=== PATIENT | male | born 1995 | race Caucasian/White ===

== ENCOUNTER 2016-07-08 03:00 | Emergency (ER) | payer OTHER ==
[~2016-07-08] VITALS: Ht 175.3 cm; Wt 90.7 kg
[2016-07-08 03:12] VITALS: BP 140/74
--- NOTE | 2016-07-08 03:17 | NUR ---
AMBULATED TO ER BED 2
--- NOTE | 2016-07-08 03:29 | NUR ---
PATIENT PRESENTS TO ED WITH SINUS PRESSURE X4 DAYS . PT STATES USING SALINE SPRAY WITH NO RELIEF . STATES N/V, DENIES DIARRHEA; SKIN IS PINK/WARM/DRY; AAOX4 WITH EVEN AND STEADY GAIT; LUNGS CLEAR BL; HR EVEN AND REGULAR; PT DENIES ANY FEVER, CP, SOB, OR COUGH AT THIS TIME; PATIENT STATES PRESSURE PAIN OF 10/10 AT THIS TIME; VSS; PATIENT POSITIONED FOR COMFORT; HOB ELEVATED; BEDRAILS UP X2; BED DOWN. ER MD MADE AWARE OF PT STATUS.
--- NOTE | 2016-07-08 03:59 | NUR ---
MD AT BEDSIDE ASSESSING PATIENT.
[2016-07-08] MEDS ORDERED: ALBUTEROL SULFATE/IPRATROPIU 3 ML SOL IH ONE (04:05)
[2016-07-08] MEDS ORDERED: DEXAMETHASONE 10 MG/ML VIAL PO ONE (04:05)
[2016-07-08] MEDS ORDERED: ACETAMINOPHEN/CODEINE 300/30MG 1 TAB PO ONE (04:05)
[2016-07-08 04:29] VITALS: BP 140/74
--- NOTE | 2016-07-08 04:29 | NUR ---
Patient discharged with v/s stable. Written and verbal after care instructions given and explained. Patient alert, oriented and verbalized understanding of instructions. Ambulatory with steady gait. All questions addressed prior to discharge. ID band removed. Patient advised to follow up with PMD. Rx of ALBUTEROL 90MCG/ACTUATION INHALATION AEROSOL, 1 TO 2 PUFFS; 4 TIMES A DAY, AUGMENTIN 875MG TABLET, TYLENOL WITH CODEINE NO. 3 TABLET given. Patient educated on indication of medication including possible reaction and side effects. Opportunity to ask questions provided and answered.
== END 2016-07-08 04:29 | disposition home or self-care (01) ==
LOC: MED 03:03
DX: J02.9 Acute pharyngitis, unspecified (principal); J01.90 Acute sinusitis, unspecified; J45.909 Unspecified asthma, uncomplicated
CPT/HCPCS: 94640; 99283; J1100; J7620

== ENCOUNTER 2016-09-18 20:12 | Emergency (ER) | payer OTHER ==
[~2016-09-18] VITALS: Ht 175.3 cm; Wt 90.7 kg
[2016-09-18 20:35] VITALS: BP 145/69
--- NOTE | 2016-09-19 00:08 | NUR ---
TO ER BED 4
--- NOTE | 2016-09-19 00:10 | NUR ---
20 Y/O W/C/O COUGH, AND BACK PAIN AND SORETHROAT X 1 WK. PT STATES HAS A HX OF ASTHMA. WHEZEES NOTED ON ASCULTATION. PT ON MONITOR, O2 SAT 98% RA. ER MD NOTIFIED. RT CALLED AT BEDSIDE.
--- NOTE | 2016-09-19 00:14 | NUR ---
RT AT BEDSIDE
[2016-09-19] MEDS ORDERED: ALBUTEROL SULFATE/IPRATROPIU 3 ML SOL IH ONE ×2 (00:15→00:20)
[2016-09-19] MEDS ORDERED: methylPREDNISolone SS 125 MG in WATER STERILE 2 ML IM ONE (00:30)
[2016-09-19 01:04] VITALS: BP 127/78
--- NOTE | 2016-09-19 01:04 | NUR ---
Patient discharged with v/s stable. Written and verbal after care instructions given and explained. Patient alert, oriented and verbalized understanding of instructions. Ambulatory with steady gait. All questions addressed prior to discharge. ID band removed. Patient advised to follow up with PMD OR RETURN TO ER IF CONDITION WORSENS. Rx of ALBUTEROL, PREDNISONE AND AMOXICILLIN given. Patient educated on indication of medication including possible reaction and side effects. Opportunity to ask questions provided and answered.
== END 2016-09-19 01:04 | disposition home or self-care (01) ==
LOC: MED 20:12
DX: J20.9 Acute bronchitis, unspecified (principal); R03.0 Elevated blood-pressure reading, without diagnosis of hypertension; J45.909 Unspecified asthma, uncomplicated
CPT/HCPCS: 71010; 94640; 99283; J2930; J7620

== ENCOUNTER 2016-11-05 15:39 | Emergency (ER) | payer OTHER ==
[~2016-11-05] VITALS: Ht 175.3 cm; Wt 88.5 kg
[2016-11-05 15:56] VITALS: BP 143/82
--- NOTE | 2016-11-05 19:31 | NUR ---
21 Y/O M W/C/O DIZZINESS, AND STATES FAINTED X 2 TIMES TODAY. VSS, ON MONITOR NO S/S OF DISTRESS NOTED AT THE TIME.
--- NOTE | 2016-11-05 19:32 | NUR ---
PT TAKEN TO BED 3
--- NOTE | 2016-11-05 19:37 | NUR ---
Dr. Milner evaluating patient at bedside.
[2016-11-05 20:00] VITALS: BP 136/59
--- NOTE | 2016-11-05 20:00 | NUR ---
Patient discharged with v/s stable. Written and verbal after care instructions given and explained. Patient verbalized understanding. Ambulatory with steady gait. All questions addressed prior to discharge. Advised to follow up with PMD FOR NEUROLOGIST REFERAL. PT ADVISED BY DR MUNROE NOT TO DRIVE UNTIL GET CLEAR BY NEUROLOGIST.
== END 2016-11-05 20:00 | disposition home or self-care (01) ==
LOC: MED 15:39
DX: R55 Syncope and collapse (principal); R03.0 Elevated blood-pressure reading, without diagnosis of hypertension; J45.909 Unspecified asthma, uncomplicated

== ENCOUNTER 2017-05-16 10:34 | Emergency (ER) | payer OTHER ==
[~2017-05-16] VITALS: Ht 175.3 cm; Wt 92.5 kg
[2017-05-16 11:03] VITALS: BP 139/86
--- NOTE | 2017-05-16 11:08 | NUR ---
PT AMBULATED TO ER BED 11.
--- NOTE | 2017-05-16 11:15 | NUR ---
21/M PRESENT TO ER C/O NAUSEA AND VOMITING x 3 EPISODES SINCE THIS MORNING. PT STATES HE HAD COLD SYMPTOMS x 2 WEEKS. HX: ASTHMA; MEDS: ALBUTEROL INHALER. DENIES DIARRHEA; SKIN IS PINK/WARM/DRY; AAOX4 WITH EVEN AND STEADY GAIT; LUNGS CLEAR BL; HR EVEN AND REGULAR; PT DENIES ANY FEVER, CP, OR SOB AT THIS TIME; PATIENT STATES PAIN OF 0/10 AT THIS TIME; VSS; PATIENT POSITIONED FOR COMFORT; HOB ELEVATED; BEDRAILS UP X2; BED DOWN. ER MD MADE AWARE OF PT STATUS.
[2017-05-16] MEDS ORDERED: METOCLOPRAMIDE 10 MG TAB PO ONE (11:45)
[2017-05-16] MEDS ORDERED: ACETAMINOPHEN EXTRA STRENGTH 500 MG TAB PO ONE (11:45)
[2017-05-16] MEDS ORDERED: KETOROLAC 60 MG/2 ML VIAL IM ONE (12:00)
[2017-05-16] MEDS ORDERED: METOCLOPRAMIDE 10 MG/2 ML INJ VIAL IM ONE (12:00)
--- NOTE | 2017-05-16 12:02 | NUR ---
tylenol po and reglan 10mg po not given d/t pt vomiting, md notified Addendum: 05/16/17 at 1930 by DUSTIN telnol 1000mg wasted reglan returned Addendum: 05/16/17 at 1930 by DUSTIN reglan tablet return
--- NOTE | 2017-05-16 12:29 | NUR ---
Patient discharged with v/s stable. Written and verbal after care instructions given and explained. Patient alert, oriented and verbalized understanding of instructions. Ambulatory with steady gait. All questions addressed prior to discharge. ID band removed. Patient advised to follow up with PMD. Rx of PROMETHAZINE HYDROCHLORIDE AND SUDAFED given. Patient educated on indication of medication including possible reaction and side effects. Opportunity to ask questions provided and answered.
[2017-05-16 12:30] VITALS: BP 132/75
== END 2017-05-16 12:29 | disposition home or self-care (01) ==
LOC: MED 10:34
DX: J06.9 Acute upper respiratory infection, unspecified (principal); J45.909 Unspecified asthma, uncomplicated
CPT/HCPCS: 96372; 99284; J1885; J2765; J8597

== ENCOUNTER 2018-05-02 14:23 | Emergency (ER) | payer OTHER ==
[~2018-05-02] VITALS: Ht 175.3 cm; Wt 83.9 kg
[2018-05-02 14:28] VITALS: BP 133/84
--- NOTE | 2018-05-02 14:30 | NUR ---
PATIENT TAKEN TO ER CHAIR A.
--- NOTE | 2018-05-02 14:35 | NUR ---
PT IS A 22 Y/O MALE WHO PRESENTS TO THE ED C/O ASTHMA. PT STATES THAT IT STARTED X30 MINUTES AGO AND CANNOT CATCH HIS BREATHE, USED INHALER WITH NO RELIEF. PT REPORTS 6/10 ACHING UPPER ABD PAIN THAT DOES NOT RADIATE. PT DENIES CP, REPORTS SOB, WHEEZES NOTED BL. PT AWAKE AND ALERT, RR EVEN/UNLABORED. PT REPOSITIONED FOR COMFORT, BED IN LOWEST POSITION. ER MD DR. GARCIA NOTIFIED. WILL CONTINUE TO MONITOR. HX ASTHMA RX INHALERS
[2018-05-02] MEDS ORDERED: ALBUTEROL SULFATE/IPRATROPIU 3 ML SOL IH ONE ×2 (14:40→14:50)
[2018-05-02] MEDS ORDERED: DEXAMETHASONE 10 MG/ML VIAL IM ONE (14:50)
--- NOTE | 2018-05-02 14:55 | NUR ---
RT AT PATIENT SIDE FOR INTERVENTION.
--- NOTE | 2018-05-02 15:22 | NUR ---
PATIENT MOVED TO ER BED 7.
--- NOTE | 2018-05-02 17:34 | NUR ---
PT VERBALIZES RELIEF FROM SOB; SATTES "I'M FEELING MUCH BETTER"NO RETRACTION;ACCESSORY MUSCLES USED.ALL MONITORS IN PLACED;WILL CONTINUE TO MONITOR PT.
--- NOTE | 2018-05-02 18:05 | NUR ---
PT RESTING COMFORTABLY ON BED; NO RESPIRATORY DISTRESS NOTED; WILL CONTINUE TO MONITOR PT.
[2018-05-02 18:50] VITALS: BP 119/65
--- NOTE | 2018-05-02 18:50 | NUR ---
Patient discharged with v/s stable. Written and verbal after care instructions given and explained. Patient alert, oriented and verbalized understanding of instructions. Ambulatory with steady gait. All questions addressed prior to discharge. ID band removed. Patient advised to follow up with PMD. Rx of ALBUTEROL, AZITHROMYCIN AND PREDNISONE given. Patient educated on indication of medication including possible reaction and side effects. Opportunity to ask questions provided and answered.
== END 2018-05-02 18:50 | disposition home or self-care (01) ==
LOC: MED 14:23
DX: J45.901 Unspecified asthma with (acute) exacerbation (principal)
CPT/HCPCS: 71046; 94640; 96372; 99283; J1100; J7620

== ENCOUNTER 2018-06-23 22:21 | Emergency (ER) | payer OTHER ==
[~2018-06-23] VITALS: Ht 175.3 cm; Wt 83.9 kg
--- NOTE | 2018-06-23 22:24 | NUR ---
PT TAKEN TO BED 6
[2018-06-23 22:25] VITALS: BP 140/91
--- NOTE | 2018-06-23 22:35 | NUR ---
PT BIB SELF C/O THROAT PAIN, COUGH. PT STATES HE HAS SENSATION OF SWELLING AND "POPPING" WHEN HE IS COUGHING. RR EVEN AND UNALBORED, BL BS WHEEZES ON EXPIRATION. PT HAS INHALER HE USES AT HOME. PT IS LAYING IN BED, IN NO RESPIRATORY DISTRESS.
--- NOTE | 2018-06-23 22:57 | NUR ---
XRAY AT BEDSIDE
--- NOTE | 2018-06-23 23:20 | NUR ---
Dr. Gifford evaluating patient at bedside.
--- NOTE | 2018-06-23 23:28 | NUR ---
Respiratory Therapist at bedside for respiratory intervention.
[2018-06-23] MEDS: predniSONE 20 MG TAB PO ONE (23:31)
[2018-06-23] MEDS: ALBUTEROL SULFATE/IPRATROPIU 3 ML SOL IH ONE (23:39)
--- NOTE | 2018-06-23 23:40 | NUR ---
PT TO RADIOLOGY VIA WHEELCHAIR
[2018-06-24 00:28] VITALS: BP 149/80
--- NOTE | 2018-06-24 00:28 | NUR ---
Patient discharged with v/s stable. Written and verbal after care instructions given and explained. Patient alert, oriented and verbalized understanding of instructions. Ambulatory with steady gait. All questions addressed prior to discharge. ID band removed. Patient advised to follow up with PMD. Rx of PREDNISONE, ALBUTEROL given. Patient educated on indication of medication including possible reaction and side effects. Opportunity to ask questions provided and answered.
== END 2018-06-24 00:28 | disposition home or self-care (01) ==
LOC: MED 22:21
DX: J45.901 Unspecified asthma with (acute) exacerbation (principal)
CPT/HCPCS: 70360; 71045; 94640; 99283; J7512; J7620

== ENCOUNTER 2018-09-08 01:14 | Emergency (ER) | payer OTHER ==
[~2018-09-08] VITALS: Ht 177.8 cm; Wt 86.6 kg
[2018-09-08 01:24] VITALS: BP 131/76
--- NOTE | 2018-09-08 01:34 | NUR ---
PT IS SITTING UP IN A CHAIR TILL AN AVAILABLE BED IS OEN, VSS. PT IS SAT. IS AT 94 PERCENT ON RA
--- NOTE | 2018-09-08 01:49 | NUR ---
PT AMBULATED TO BED #10
--- NOTE | 2018-09-08 02:00 | NUR ---
PATIENT PRESENTS TO ED WITH C/O SOB, +WHEEZES SINCE 1300 YESTERDAY . PT STATES HE RAN OUT OF ALBUTEROL INHALER TODAY .PATIENT DENIES N/V/D; SKIN IS PINK/WARM/DRY; AAOX4 WITH EVEN AND STEADY GAIT; HR EVEN AND REGULAR; PT DENIES ANY FEVER, CP, OR COUGH AT THIS TIME; PATIENT STATES PAIN OF 0/10 AT THIS TIME; VSS; PATIENT POSITIONED FOR COMFORT; HOB ELEVATED; BEDRAILS UP X2; BED DOWN. ER MD MADE AWARE OF PT STATUS.
--- NOTE | 2018-09-08 02:26 | NUR ---
Patient being evaluated by physician at bedside.
[2018-09-08] MEDS ORDERED: ALBUTEROL SULFATE/IPRATROPIU 3 ML SOL IH ONE (02:40)
[2018-09-08] MEDS ORDERED: predniSONE 20 MG TAB PO ONE (02:40)
[2018-09-08 03:12] VITALS: BP 107/62
--- NOTE | 2018-09-08 03:12 | NUR ---
Patient discharged with v/s stable. Written and verbal after care instructions given and explained. Patient alert, oriented and verbalized understanding of instructions. Ambulatory with steady gait. All questions addressed prior to discharge. ID band removed. Patient advised to follow up with PMD. Rx of albuterol inhaler and pelon given. Patient educated on indication of medication including possible reaction and side effects. Opportunity to ask questions provided and answered.
== END 2018-09-08 03:12 | disposition home or self-care (01) ==
LOC: MED 01:14
DX: J45.901 Unspecified asthma with (acute) exacerbation (principal)
CPT/HCPCS: 94640; 99283; J7512; J7620

== ENCOUNTER 2018-10-20 03:45 | Emergency (ER) | payer OTHER ==
[~2018-10-20] VITALS: Ht 175.3 cm; Wt 83.9 kg
[2018-10-20 03:50] VITALS: BP 138/76
--- NOTE | 2018-10-20 03:53 | NUR ---
PT AMBULATED TO BED 9.
--- NOTE | 2018-10-20 04:09 | NUR ---
PT TO ED WITH C/O JAW PAIN S/P MECHANICAL FALL X 12 HRS AGO. DENIES LOC. MILD SWELLING NOTED TO RT SIDE OF JAW. PT UNABLE TO OPEN MOUTH COMPLETLEY. ABLE TO SPEAK IN FULL COMPLETE SENTENCES. PER PT "I FELL AND THEN HEARD A POP AND MY TEETH ARENT LINING UP RIGHT". PT PLACED INTO BED, PENDING MD FUENTES.
[2018-10-20] MEDS ORDERED: IBUPROFEN 800 MG TAB PO ONE (04:20)
[2018-10-20 05:22] VITALS: BP 129/81
== END 2018-10-20 05:22 | disposition home or self-care (01) ==
LOC: MED 03:45
DX: M26.621 Arthralgia of right temporomandibular joint (principal); J45.909 Unspecified asthma, uncomplicated
CPT/HCPCS: 70110; 99283

== ENCOUNTER 2021-01-06 03:30 | Inpatient (IN) | payer OTHER, SELFPAY ==
[~2021-01-06] VITALS: Ht 175.3 cm; Wt 93.0 kg
[2021-01-06 03:40] VITALS: BP 116/67
--- NOTE | 2021-01-06 03:40 | NUR ---
to bed ambulatory
--- NOTE | 2021-01-06 04:00 | NUR ---
RECEIVED IN BED 11 WITH C/O EPIGASTRIC PAIN X 2 DAYS. IS RESTLESS WITH MUCH FACIAL GRIMACING
--- NOTE | 2021-01-06 04:10 | NUR ---
SL ESTABLISHED, LABS DRAWN
[2021-01-06] MEDS ORDERED: KETOROLAC 30 MG/ML VIAL IVP ONE (04:25)
[2021-01-06] MEDS ORDERED: KETOROLAC 30 MG/ML VIAL ONE (04:26)
--- NOTE | 2021-01-06 04:31 | NUR ---
TO CT VIA W/C
--- NOTE | 2021-01-06 04:44 | NUR ---
RETURNED FROM CT
[2021-01-06 04:51] LABS: APPEARANCE,URINE CLEAR (CLEAR); BILIRUBIN,URINE NEGATIVE (NEGATIVE); BLOOD, URINE TRACE-I (NEGATIVE); COLOR,URINE YELLOW (YELLOW); LEUKOCYTE ESTERASE ,URINE NEGATIVE (NEGATIVE); NITRITE, URINE NEGATIVE (NEGATIVE); PH,URINE 5.5 (5.0-9.0); UGLUCOSE NEGATIVE (NEGATIVE)
[2021-01-06 04:59] LABS: HEMATOCRIT 45.1 % (36-52); MEAN CORPUSCULAR HGB CONC 35 g/dL (33-37); WHITE BLOOD COUNT (AUTO) 9.6 K/uL (4.8-10.8)
[2021-01-06 05:01] LABS: BARBITURATE, URINE NEGATIVE ng/ml (NEG <=200); BENZODIAZEPINE, URINE NEGATIVE ng/mL (NEG <=200); CANNABINOID, URINE POSITIVE ng/mL (NEG <=50); COCAINE, URINE NEGATIVE ng/mL (NEG <=300); OPIATE, URINE NEGATIVE ng/mL (NEG <=2000); PHENCYCLIDINE SCREEN,URINE NEGATIVE ng/mL (NEG <=25)
[2021-01-06 05:03] LABS: BASOPHILS # (AUTO) 0.1 K/uL (0.00-0.22); BASOPHILS % (AUTO) 0.8 % (0.0-2.0); EOSINOPHILS % (AUTO) 10.6 % (0.0-4.0); HEMOGLOBIN 15.8 g/dL (12.0-18.0); LYMPHOCYTES # (AUTO) 2.7 K/uL (2.0-11.5); LYMPHOCYTES % (AUTO) 27.8 % (20.5-51.1); MEAN CORPUSCULAR HEMOGLOBIN 32 pg (27-31); MEAN CORPUSCULAR VOLUME 91.8 fL (80-94); MONOCYTES # (AUTO) 0.8 K/uL (0.8-1.0); MONOCYTES % (AUTO) 7.9 % (1.7-9.3); NEUTROPHILS # (AUTO) 5.1 K/uL (1.8-7.7); NEUTROPHILS % (AUTO) 52.9 % (42.2-75.2); PLATELET COUNT (AUTO) 253 K/uL (140-450); RBC,URINE 0-5 /HPF (0-5); RED BLOOD CELL COUNT(AUTO) 4.91 MIL/uL (4.20-6.10); RED CELL DISTRIBUTION WIDTH 13.1 % (11.6-13.7); WBC,URINE 0-5 /HPF (0-5)
[2021-01-06 05:04] LABS: ALBUMIN 4.5 g/dL (3.4-5.0); ANION GAP 14.7 (8-16); CARBON DIOXIDE 25.1 mmol/L (21-32); CREATININE 1.2 mg/dL (0.6-1.3); POTASSIUM 3.8 mmol/L (3.5-5.1); TOTAL BILIRUBIN 0.7 mg/dL (0.0-1.0)
[2021-01-06] MEDS ORDERED: DICYCLOMINE HCL LIQUID 20 MG, ALUMINUM HYD/MAG/SIMETHICONE 30 ML, LIDOCAINE VISCOUS 2% ... PO ONE ×3 (05:55)
[2021-01-06] MEDS ORDERED: DICYCLOMINE HCL LIQUID 10 MG/5 ML UDC ONE (05:57)
[2021-01-06] MEDS ORDERED: ALUMINUM HYD/MAG/SIMETHICONE 30 ML UDC ONE (05:57)
[2021-01-06] MEDS ORDERED: MORPHINE SULFATE 4 MG/ML SYR IVP ONE (06:15)
[2021-01-06] MEDS ORDERED: PROCHLORPERAZINE 10 MG/2 ML VIAL IVP ONE (06:55)
--- NOTE | 2021-01-06 08:30 | NUR ---
DR SPIVEY AT BEDSIDE EXAMINING PT
[2021-01-06] MEDS ORDERED: POTASSIUM CHL 20 MEQ/D5-1/2NS 1,000 ML IV ONE (08:45)
--- NOTE | 2021-01-06 08:53 | NUR ---
# 18 FR NG tube placed to LT nare. Placement checked by auscultation of instilled air into stomach and aspiration of gastric contents. Tubing taped in place to prevent dislodging. Patient tolerated well.
[2021-01-06] MEDS ORDERED: KCL 20 MEQ/WATER INJ PREMIX 200 ML IV PRN (09:00)
[2021-01-06] MEDS ORDERED: MAGNESIUM OXIDE 400 MG TAB PO PRN (09:00)
[2021-01-06] MEDS ORDERED: ACETAMINOPHEN 325 MG TAB PO PRN (09:00)
[2021-01-06] MEDS ORDERED: MAG SULF 2000 MG/WATER PREMIX 50 ML IV PRN (09:00)
[2021-01-06] MEDS ORDERED: HYDROcodone/APAP 5/325 MG 1 TAB TAB PO PRN (09:00)
[2021-01-06] MEDS ORDERED: POTASSIUM CHLORIDE 10 MEQ TABER PO PRN (09:00)
--- NOTE | 2021-01-06 09:01 | NUR ---
HOP WORKER AT PT BEDSIDE.
[2021-01-06] MEDS: NACL 0.9% 1,000 ML IV SCH ×2 (09:05→22:21)
--- NOTE | 2021-01-06 09:23 | NUR ---
LAB AT BEDSIDE
--- NOTE | 2021-01-06 10:22 | NUR ---
HOMICIDE SQUAD CAPTAIN AT PT BEDSIDE.
--- NOTE | 2021-01-06 10:45 | NUR ---
PT TAKEN TO OR FOR PROCEDURE VIA GURBAMBI
--- NOTE | 2021-01-06 11:29 | NUR ---
PT RETURNED FROM OR
--- NOTE | 2021-01-06 13:55 | NUR ---
XRAY AT BEDSIDE
--- NOTE | 2021-01-06 14:04 | NUR ---
XRAY AT BEDSIDE
[2021-01-06] MEDS: MORPHINE SULFATE 4 MG/ML SYR IVP PRN ×3 (14:27→23:56)
[2021-01-06] MEDS: ONDANSETRON 4 MG/2 ML VIAL IVP PRN ×2 (14:27→20:09)
--- NOTE | 2021-01-06 14:27 | NUR ---
PT C/O 7/10 PAIN AND NAUSEA. MORPHINE AND ZOFRAN PRN GIVEN.
--- NOTE | 2021-01-06 16:52 | NUR ---
XRAY AT BEDSIDE
--- NOTE | 2021-01-06 17:46 | NUR ---
PT AMBULATED TO RESTROOM, STEADY GAIT
--- NOTE | 2021-01-06 19:20 | NUR ---
Pt report given to EMRE VALDIVIA. Transfer of care at this time.
--- NOTE | 2021-01-06 19:41 | NUR ---
RAD AT BEDSIDE.
--- NOTE | 2021-01-06 19:55 | NUR ---
PT IS SITTING UP IN BED. VSS. EQUAL RISE AND FALL OF CHEST WALL. PT COMPLAINED OF PAIN 8/10 AND NAUSEA, PT ASKED FOR PAIN MEDICATION AND SOMETHING FOR NAUSEA. ALL NEEDS MET AT THIS TIME. BED LOCKED IN LOWEST POSITION SIDE RAILS X2.
--- NOTE | 2021-01-06 20:11 | NUR ---
PT IS SLEEPING. EQUAL RISE AND FALL OF CHEST WALL. VSS. OPENS EYES TO SOUND. BED LOCKED IN LOWEST POSITION, SIDE RAILSX2.
--- NOTE | 2021-01-06 20:40 | NUR ---
GAVE REPORT TO SHEA ALMENDAREZ. [id number]
--- NOTE | 2021-01-06 21:00 | NUR ---
Patient will be admitted to care of . Admited to [facility]. Will go to [id number]. Belongings list completed. Report to SHEA ALMENDAREZ.
--- NOTE | 2021-01-06 21:20 | NUR ---
ADMITTED THIS 25 YEAR OLD MALE FROM ER PER ImaniSARDIS WITH CC OF ABDOMINAL NEWSOME AND N/V, AMBULATED TO BED WITH STEADY GAIT, VITAL SIGNS STABLE, TOLERABLE ABDOMINAL PAIN AND NO N/V AT THIS TIME, NGT TO LEFT NARES, ATTACHED TO LOW INTERMITTENT SUCTION, MAINTAIN ON NPO EXCEPT MEDS, IVF OF NS AT 80ML/H CONTINUED, ORIENTED TO ROOM AND CALL LIGHT, PLAN OF CARE DISCUSSED, SAFETY MEASURES IN PLACE, CALL LIGHT WITHIN REACH.
[2021-01-06 22:00] VITALS: BP 134/72
[2021-01-07] MEDS: ONDANSETRON 4 MG/2 ML VIAL IVP PRN ×3 (00:13→08:19)
--- NOTE | 2021-01-07 00:15 | NUR ---
PT AMBULATED TO BR, VOIDED FREELY AND STATED WITH LOOSE BOWEL, BACK TO BED, MEDICATED PRN FOR PAIN AND NAUSEA, NO VOMITING NOTED, CONTINUED NGT TO LOW INT SUCTION WITH SMALL AMOUNT OF GREENISH BLACK FLUID NOTED, CONTINUE TO MONITOR CLOSELY.
[2021-01-07] MEDS ORDERED: ALBU0.0912 INH (02:57)
[2021-01-07 04:00] VITALS: BP 136/83
[2021-01-07] MEDS: MORPHINE SULFATE 4 MG/ML SYR IVP PRN ×2 (04:02→08:19)
--- NOTE | 2021-01-07 04:05 | NUR ---
PT AWAKE, COMPLAINING OF PAIN AND NAUSEA, NO VOMITING NOTED, VITAL SIGNS STABLE, MEDICATED PRN WITH MORPHINE AND ZOFRAN IVP, NGT TO LOW INTERMITTENT SUCTION, 50ML GREENISH BLACK DRAINAGE NOTED, MONITORED CLOSELY.
--- NOTE | 2021-01-07 07:15 | NUR ---
PT AWAKE, NO SIGNS OF DISTRESS, REPORT GIVEN TO SHEA NAYLOR FOR CONTINUITY OF CARE.
[2021-01-07 07:46] LABS: BASOPHILS % (AUTO) 0.2 % (0.0-2.0); EOSINOPHILS # (AUTO) 0.4 K/uL (0-0.4); EOSINOPHILS % (AUTO) 5.7 % (0.0-4.0); HEMATOCRIT 42.7 % (36-52); HEMOGLOBIN 14.4 g/dL (12.0-18.0); LYMPHOCYTES # (AUTO) 0.9 K/uL (2.0-11.5); LYMPHOCYTES % (AUTO) 13.2 % (20.5-51.1); MEAN CORPUSCULAR HEMOGLOBIN 32 pg (27-31); MEAN CORPUSCULAR HGB CONC 34 g/dL (33-37); MEAN CORPUSCULAR VOLUME 94.4 fL (80-94); MONOCYTES # (AUTO) 0.6 K/uL (0.8-1.0); MONOCYTES % (AUTO) 7.8 % (1.7-9.3); NEUTROPHILS # (AUTO) 5.2 K/uL (1.8-7.7); NEUTROPHILS % (AUTO) 73.1 % (42.2-75.2); PLATELET COUNT (AUTO) 216 K/uL (140-450); RED BLOOD CELL COUNT(AUTO) 4.53 MIL/uL (4.20-6.10); RED CELL DISTRIBUTION WIDTH 12.8 % (11.6-13.7); WHITE BLOOD COUNT (AUTO) 7.1 K/uL (4.8-10.8)
--- NOTE | 2021-01-07 07:55 | NUR ---
RECEIVED REPORT FROM COKEMAN AT BEDSIDE FOR CONTINUITY OF CARE. INITIAL ASSESSMENT INITIATED. PATIENT ALERT AWAKE ORIENTED X4, NOT IN DISTRESS NOTED. NGT TO LOW INTERMITTENT SUCTION. NPO OBSERVED. WITH IVF ON GOING AND INFUSING WELL. NEEDS ATTENDED. WILL CONTINUE TO MONITOR.
[2021-01-07 08:00] VITALS: BP 134/91
[2021-01-07 08:02] LABS: ALBUMIN 3.7 g/dL (3.4-5.0); ANION GAP 14.1 (8-16); CARBON DIOXIDE 23.9 mmol/L (21-32); CREATININE 1.1 mg/dL (0.6-1.3)
--- NOTE | 2021-01-07 08:45 | NUR ---
SEEN BY DR. SPIVEY AND EXPLAINED THE PROCEDURE. PATIENT SIGNED CONSENT.
--- NOTE | 2021-01-07 08:59 | NUR ---
PATIENT HAS BEEN SCREENED AND CATEGORIZED LOW NUTRITION RISK. PATIENT WILL BE SEEN WITHIN 7 DAYS OF ADMISSION. 01/13/[address]
[2021-01-07] MEDS: NACL 0.9% 1,000 ML IV SCH ×2 (10:00→21:27)
[2021-01-07] MEDS ORDERED: MIDAZOLAM 2 MG/2 ML VIAL ONE (11:41)
[2021-01-07] MEDS ORDERED: fentaNYL citrate 0.05 MG/ML VIAL ONE (11:41)
--- NOTE | 2021-01-07 11:41 | NUR ---
PATIENT OFF THE FLOOR, WENT TO SURGERY, ALERT AWAKE ORIENTED X4.
[2021-01-07] MEDS ORDERED: PROPOFOL 200 MG/20 ML VIAL IV ONE (11:42)
[2021-01-07] MEDS ORDERED: SUCCINYLCHOLINE CHLORIDE 200 MG/10 ML VIAL IVP ONE (11:42)
[2021-01-07] MEDS ORDERED: BUPIVACAINE-MPF/EPI 0.25% 30 ML VIAL INJ ONE (11:51)
[2021-01-07] MEDS ORDERED: metroNIDAZOLE 500 MG/NS PREMIX 100 ML IV ONE (11:51)
[2021-01-07] MEDS ORDERED: ceFAZolin 1,000 MG VIAL ONE (11:51)
[2021-01-07] MEDS ORDERED: SUGAMMADEX SODIUM 200 MG/2 ML VIAL IV ONE ×2 (11:54→13:22)
[2021-01-07] MEDS ORDERED: ROCURONIUM 50 MG/5 ML VIAL IV ONE (11:54)
[2021-01-07] MEDS ORDERED: SEVOFLURANE 250 ML BTL INH ONE ×2 (12:15)
[2021-01-07] MEDS ORDERED: diphenhydrAMINE 50 MG/ML VIAL IVP PRN (13:10)
[2021-01-07] MEDS ORDERED: HYDROmorphone 1 MG/ML AMP IVP PRN (13:10)
[2021-01-07] MEDS: LACTATED RINGERS 1,000 ML IV SCH ×2 (13:10→21:30)
[2021-01-07] MEDS ORDERED: MEPERIDINE 25 MG/ML SYR IVP PRN (13:10)
[2021-01-07] MEDS ORDERED: ONDANSETRON 4 MG/2 ML VIAL IVP PRN (13:10)
[2021-01-07] MEDS ORDERED: MEPERIDINE 50 MG/ML SYR ONE (13:24)
--- NOTE | 2021-01-07 14:33 | NUR ---
PATIENT BACK FROM SURGERY, ALERT AWAKE ORIENTED X4, NOT IN ANY DISTRESS NOTED. VITALS STABLE.
[2021-01-07 16:00] VITALS: BP 125/61
[2021-01-07] MEDS: HYDROmorphone 1 MG/ML AMP IVP PRN ×2 (16:52→23:16)
--- NOTE | 2021-01-07 16:52 | NUR ---
PAIN MEDICATION GIVEN. WILL CONTINUE TO MONITOR.
--- NOTE | 2021-01-07 18:00 | NUR ---
PATIENT CALLED ASKING FOR PAIN MEDICATION EXPLAINED TO HIM THAT IT'S EVERY 6 HOURS NEEDED, VERBALIZED UNDERSTANDING.
--- NOTE | 2021-01-07 19:20 | NUR ---
REPORT GIVEN TO SHEA ALMENDAREZ FOR CONTINUITY OF CARE. PATIENT REMAIN STABLE.
--- NOTE | 2021-01-07 19:21 | NUR ---
RECEIVED PT AWAKE ON BED, AAOX4, COMPLAINING OF ABDOMINAL PAIN, WILL MEDICATE PRN, S/P DIAGNOSTIC LAPAROSCOPY TODAY, WITH ABDOMINAL INCISION X3 COVERED WITH DERMABOND, NO SIGNS OF BLEEDING NOTED, IVF INFUSING WELL, PLAN OF CARE DISCUSSED, CALL LIGHT WITHIN REACH.
[2021-01-07] MEDS: HYDROcodone/APAP 5/325 MG 1 TAB TAB PO PRN (19:28)
[2021-01-07 20:00] VITALS: BP 124/63
--- NOTE | 2021-01-07 20:40 | NUR ---
PT SEEN AMBULATING ON THE HALLWAY WITH STEADY GAIT, TOLERATING CLEAR LIQUID DIET, ALL NEEDS ATTENDED.
--- NOTE | 2021-01-07 23:16 | NUR ---
PT SEEN COMING BACK TO BR, STATED VOIDING FREELY AND PASSING GAS, COMPLAINING OF ABDOMINAL PAIN, MEDICATED PRN WITH DILAUDID IVP, IVF INFUSING WELL, MONITORED CLOSELY.
--- NOTE | 2021-01-08 02:30 | NUR ---
PT SLEEPING, NO RESP DISTRESS NOTED, IVF INFUSING WELL, MONITORED CLOSELY.
[2021-01-08] MEDS: HYDROcodone/APAP 5/325 MG 1 TAB TAB PO PRN ×2 (03:28→09:39)
[2021-01-08 04:00] VITALS: BP 136/68
[2021-01-08] MEDS: HYDROmorphone 1 MG/ML AMP IVP PRN ×2 (05:14→10:58)
[2021-01-08] MEDS: LACTATED RINGERS 1,000 ML IV SCH (05:50)
[2021-01-08 07:28] LABS: BASOPHILS % (AUTO) 0.2 % (0.0-2.0); EOSINOPHILS # (AUTO) 0.7 K/uL (0-0.4); EOSINOPHILS % (AUTO) 9.6 % (0.0-4.0); HEMATOCRIT 40.3 % (36-52); HEMOGLOBIN 13.7 g/dL (12.0-18.0); LYMPHOCYTES % (AUTO) 27.7 % (20.5-51.1); MEAN CORPUSCULAR HEMOGLOBIN 32 pg (27-31); MEAN CORPUSCULAR HGB CONC 34 g/dL (33-37); MEAN CORPUSCULAR VOLUME 94.2 fL (80-94); MONOCYTES # (AUTO) 0.7 K/uL (0.8-1.0); MONOCYTES % (AUTO) 9.4 % (1.7-9.3); NEUTROPHILS # (AUTO) 3.9 K/uL (1.8-7.7); NEUTROPHILS % (AUTO) 53.1 % (42.2-75.2); PLATELET COUNT (AUTO) 203 K/uL (140-450); RED BLOOD CELL COUNT(AUTO) 4.28 MIL/uL (4.20-6.10); RED CELL DISTRIBUTION WIDTH 12.7 % (11.6-13.7); WHITE BLOOD COUNT (AUTO) 7.3 K/uL (4.8-10.8)
--- NOTE | 2021-01-08 07:40 | NUR ---
PT AWAKE, NO SIGNS OF DISTRESS, REPORT GIVEN TO SHEA FLORES FOR CONTINUITY OF CARE.
[2021-01-08 08:39] LABS: ALBUMIN 3.5 g/dL (3.4-5.0); ANION GAP 12.3 (8-16); CARBON DIOXIDE 24.3 mmol/L (21-32); CREATININE 0.9 mg/dL (0.6-1.3); MAGNESIUM 1.9 mg/dL (1.8-2.4); POTASSIUM 3.6 mmol/L (3.5-5.1); TOTAL BILIRUBIN 0.7 mg/dL (0.0-1.0)
--- NOTE | 2021-01-08 11:30 | NUR ---
NURSE CARE MEDICATED FOR PAIN WITH NORCO 5/325 AT 0939 AND DILAUDID 1 MG GIVEN AT 1058 WITH RELIEF.
[2021-01-08] MEDS ORDERED: HYDR-5080 PO (14:14)
--- NOTE | 2021-01-08 15:59 | NUR ---
Patient tolerated food, no vomiting noted, per pt he is ready to go home, prescription given
[2021-01-08 16:02] VITALS: BP 133/82
--- NOTE | 2021-01-08 16:47 | NUR ---
DISCHARGED PT TO HOME, PRESCRIPTION GIVEN, BELONGINGS WITH THE PT, PER PT HE WILL FOLLOW UP WITH HIS PRIMARY MD, PATIENT AMBULATORY, NO VOMITING NOTED INSTRUCTED TO RETURN TO ER IF PT HAS ANY SYMPTOMS.
== END 2021-01-08 16:52 | disposition home or self-care (01) | DRG 222 ==
LOC: MED 03:30 → MMU 09:02 → MTU 19:34
PROVIDERS: ADMIT Hospitalist; ATTEND Hospitalist
PROC: 0D9670Z Drainage of Stomach with Drainage Device, Via Natural or Artificial Opening (ICD-10-PCS; 2021-01-06)
PROC: 0DJ64ZZ Inspection of Stomach, Percutaneous Endoscopic Approach (ICD-10-PCS; principal; 2021-01-07 11:50)
DX: K56.609 Unspecified intestinal obstruction, unspecified as to partial versus complete obstruction (principal); E87.6 Hypokalemia; J45.909 Unspecified asthma, uncomplicated; Z20.822 Contact with and (suspected) exposure to COVID-19; Z82.49 Family history of ischemic heart disease and other diseases of the circulatory system; K52.9 Noninfective gastroenteritis and colitis, unspecified; N28.9 Disorder of kidney and ureter, unspecified; F15.90 Other stimulant use, unspecified, uncomplicated; F12.90 Cannabis use, unspecified, uncomplicated
CPT/HCPCS: 36415; 71045; 74250; 80053; 80305; 81001; 82150; 83690; 83735; 85025; 87081; 96374; 96375; 99285; J0330; J0690; J0780; J1170; J1885; J2175; J2250; J2270; J2405; J2704; J3010; J3490; J7030; J7120

== ENCOUNTER 2021-08-20 11:45 | Emergency (ER) | payer OTHER, SELFPAY ==
[~2021-08-20] VITALS: Ht 177.8 cm; Wt 93.4 kg
[~2021-08-20 11:45] MED LIST: ALBU0.0912 INH; HYDR-5080 PO
[2021-08-20] MEDS ORDERED: KETOROLAC 60 MG/2 ML VIAL IM ONE (12:00)
--- NOTE | 2021-08-20 12:02 | NUR ---
Patient ambulated to bed 9.
--- NOTE | 2021-08-20 12:20 | NUR ---
RAD at patient bedside.
--- NOTE | 2021-08-20 12:30 | NUR ---
25 YEAR OLD MALE BIB SELF WITH C/O BACK PAIN SINCE THIS MORNING. STATES SHARP CONSTANT PAIN 10/10 IN LEFT MID BACK. DENIES N/V/D AND RECENT INJURY OR TRAUMA. STATES "IT HURTS WHEN BREATHING." REPORTS TAKING TYLENOL WITH NO RELIEF. PMHX: ASTHMA, ADHD ALLERGIES: NKA
[2021-08-20] MEDS ORDERED: ALBUTEROL SULFATE/IPRATROPIU 3 ML SOL IH ONE (13:05)
--- NOTE | 2021-08-20 13:12 | NUR ---
Respiratory Therapist at bedside for respiratory intervention. Patient tolerated .
[2021-08-20] MEDS ORDERED: PRED20TA5 PO (14:06)
[2021-08-20] MEDS ORDERED: NAPR-54 PO (14:06)
[2021-08-20] MEDS ORDERED: AZIT250T4 PO (14:06)
[2021-08-20 14:26] VITALS: BP 122/57
--- NOTE | 2021-08-20 14:28 | NUR ---
Patient discharged with v/s stable. Written and verbal after care instructions given and explained. Patient alert, oriented and verbalized understanding of instructions. Ambulatory with steady gait. All questions addressed prior to discharge. ID band removed. Patient advised to follow up with PMD. Rx of AZITHROMYCIN, NAPROXEN, AND PREDNISONE given. Patient educated on indication of medication including possible reaction and side effects. Opportunity to ask questions provided and answered. Work note given.
== END 2021-08-20 14:28 | disposition home or self-care (01) ==
LOC: MED 11:45
DX: M54.6 Pain in thoracic spine (principal); J45.909 Unspecified asthma, uncomplicated; F90.9 Attention-deficit hyperactivity disorder, unspecified type; Z79.899 Other long term (current) drug therapy
CPT/HCPCS: 71045; 94640; 96372; 99283; J1885

== ENCOUNTER 2021-09-26 11:55 | Emergency (ER) | payer OTHER ==
[~2021-09-26] VITALS: Ht 175.3 cm; Wt 93.0 kg
[~2021-09-26 11:55] MED LIST changes: +AZIT250T4 PO; +NAPR-54 PO; +PRED20TA5 PO
[2021-09-26 11:58] VITALS: BP 127/102
--- NOTE | 2021-09-26 12:03 | NUR ---
26 Y/O MALE C/O SOB X1DAY. TOOK BREATHING TX AT HOME WITH SOME RELIEF. MEDHX: ASTHMA NKA
[2021-09-26] MEDS ORDERED: predniSONE 20 MG TAB PO ONE (12:20)
[2021-09-26] MEDS ORDERED: ALBUTEROL 0.083% 2.5 MG/3 ML NEBU INH ONE ×2 (12:20→13:10)
[2021-09-26] MEDS ORDERED: ALBUTEROL SULFATE/IPRATROPIU 3 ML SOL IH ONE ×2 (12:20→13:10)
--- NOTE | 2021-09-26 12:26 | NUR ---
RT AT BEDSIDE
--- NOTE | 2021-09-26 12:32 | NUR ---
DR VALENZUELA AT BEDSIDE
--- NOTE | 2021-09-26 12:39 | NUR ---
AMENDED PT STATED THAT HE HAD A TONSILLECTOMY
--- NOTE | 2021-09-26 12:45 | NUR ---
DR VALENZUELA AT BEDSIDE
[2021-09-26] MEDS ORDERED: ACET-8386 PO (12:57)
[2021-09-26] MEDS ORDERED: PRED20TA5 PO (12:57)
--- NOTE | 2021-09-26 13:14 | NUR ---
RT AT BEDSIDE
--- NOTE | 2021-09-26 13:33 | NUR ---
Patient discharged with v/s stable. Written and verbal after care instructions ABOUT ASTHMA AND SORE THROAT given and explained. Patient alert, oriented and verbalized understanding of instructions. Ambulatory with steady gait. All questions addressed prior to discharge. ID band removed. Patient advised to follow up with PMD. Rx of NORCO 5-325 AND PREDNISONE given. Patient educated on indication of medication including possible reaction and side effects. Opportunity to ask questions provided and answered.
== END 2021-09-26 13:33 | disposition home or self-care (01) ==
LOC: MED 11:55
DX: J45.909 Unspecified asthma, uncomplicated (principal); J02.9 Acute pharyngitis, unspecified; R07.0 Pain in throat; F17.200 Nicotine dependence, unspecified, uncomplicated; Z79.899 Other long term (current) drug therapy; Z90.49 Acquired absence of other specified parts of digestive tract
CPT/HCPCS: 94640; 99284; J7512; J7613; 99283

== ENCOUNTER 2021-09-28 09:05 | Inpatient (IN) | payer OTHER ==
[~2021-09-28] VITALS: Ht 175.3 cm; Wt 88.5 kg
[~2021-09-28 09:05] MED LIST changes: +ACET-8386 PO
--- NOTE | 2021-09-28 09:06 | NUR ---
(1959) THERPAPY AND RESPIRATORY DRUGS GIVEN PER ERMD VORBO NOTED AT 0853 ERMD AWARE OF RESPIRATORY DRUGS GIVEN ERMD TO PLACEM ORDER Addendum: 09/28/21 at 1033 by MCACPA HH = HHN
--- NOTE | 2021-09-28 09:06 | NUR ---
Respiratory Therapist at bedside for respiratory intervention.
--- NOTE | 2021-09-28 09:06 | NUR ---
(4022) PER DR. ASHISH SCHULTZ TO GIVE HHN THERAPY
[2021-09-28 09:07] VITALS: BP 119/71
--- NOTE | 2021-09-28 09:08 | NUR ---
X-Ray at bedside.
--- NOTE | 2021-09-28 09:18 | NUR ---
LAB AT PATIENT BEDSIDE
--- NOTE | 2021-09-28 09:23 | NUR ---
INFLUENZA AND COVID ANRDEW GIVEN TO LAB
[2021-09-28 09:30] LABS: BASOPHILS % (AUTO) 0.2 % (0.0-2.0); EOSINOPHILS # (AUTO) 0.1 K/uL (0-0.4); EOSINOPHILS % (AUTO) 0.6 % (0.0-4.0); HEMATOCRIT 43.3 % (36-52); HEMOGLOBIN 14.6 g/dL (12.0-18.0); LYMPHOCYTES # (AUTO) 2.5 K/uL (2.0-11.5); LYMPHOCYTES % (AUTO) 25.7 % (20.5-51.1); MEAN CORPUSCULAR HEMOGLOBIN 32 pg (27-31); MEAN CORPUSCULAR HGB CONC 34 g/dL (33-37); MEAN CORPUSCULAR VOLUME 93.7 fL (80-94); MONOCYTES # (AUTO) 0.8 K/uL (0.8-1.0); MONOCYTES % (AUTO) 8.7 % (1.7-9.3); NEUTROPHILS # (AUTO) 6.3 K/uL (1.8-7.7); NEUTROPHILS % (AUTO) 64.8 % (42.2-75.2); PLATELET COUNT (AUTO) 258 K/uL (140-450); RED BLOOD CELL COUNT(AUTO) 4.62 MIL/uL (4.20-6.10); RED CELL DISTRIBUTION WIDTH 13.8 % (11.6-13.7); WHITE BLOOD COUNT (AUTO) 9.7 K/uL (4.8-10.8)
--- NOTE | 2021-09-28 09:33 | NUR ---
TRANSFERRED PATIENT TO RADILOGY FOR CT SCAN OF CHEST PLACED ON SUPPLEMENTAL OXYGEN AT 3 LPM VIA NC SATURATION 94% TOLERATED PROCEDURE AND TRANSFERS WELL WITHOUT ADEVRSE REACTIONS NOTED
[2021-09-28 09:44] LABS: PROTHROMBIN TIME 9.7 secs (10.8-13.4)
--- NOTE | 2021-09-28 09:45 | NUR ---
PT RETURNED TO CT VIA [facility] [place]
[2021-09-28 09:46] LABS: ALBUMIN 3.9 g/dL (3.4-5.0); ANION GAP 12.5 (8-16); CARBON DIOXIDE 27.3 mmol/L (21-32); CREATININE 0.8 mg/dL (0.6-1.3); POTASSIUM 3.8 mmol/L (3.5-5.1); TOTAL BILIRUBIN 0.3 mg/dL (0.0-1.0)
[2021-09-28] MEDS ORDERED: fentaNYL citrate 0.05 MG/ML VIAL IVP ONE ×2 (09:50→12:25)
--- NOTE | 2021-09-28 10:05 | NUR ---
PT PROVIDED VERBAL CONSENT TO PROVIDE BROTHER MYRIAM WITH UPDATES. NUMBER [phone]
--- NOTE | 2021-09-28 10:05 | NUR ---
PT FIANCE BEDSIDE
--- NOTE | 2021-09-28 10:09 | NUR ---
PT BROTHER MYRIAM PROVIDED WITH UPDATE BY LUZ ORANTES
--- NOTE | 2021-09-28 10:14 | NUR ---
26 Y/O MALE BIBA FOR SOB XTODAY. PER EMS PT HAD TONSILLS RECENTLY REMOVED AND WAS HAVING AN ANXIETY ATTACK. PT PLACED ON BIPAP. ON ROOM AIR 88%. GAVE NEB TREATMENT AND 0.3 EPI IM EN ROUTE. LT AC IV 18G PLACED BY EMS. AUDIBLE WHEEZING HEARD AND WHEEZING HEARD THROUGHOUT. SIGNS OF WORK OF BREATHING NOTED. PT EXPERINCING NASAL FLARING, ACCESSORY MUSCLE USE. PT DENIES ANY CHEST TRAUMA. PER PATIENT "HE FEELS LIKE HE HAS TO PUSH THE AIR OUT." CREPTIUS NOTED ON PT CHEST REGION. PT A&OX4. SKIN DRY AND INTACT. CURRENT PAIN 10/10 IN THE UPPER CHEST REGION. MEDHX: ASTHMA NKA
[2021-09-28] MEDS ORDERED: IPRATROPIUM 0.02% 0.5 MG/2.5 ML NEBU INH ONE (10:20)
[2021-09-28] MEDS ORDERED: ALBUTEROL 0.083% 2.5 MG/3 ML NEBU INH ONE (10:20)
[2021-09-28] MEDS ORDERED: POTASSIUM CHLORIDE 10 MEQ TABER PO PRN (10:50)
[2021-09-28] MEDS ORDERED: MAGNESIUM OXIDE 400 MG TAB PO PRN (10:50)
[2021-09-28] MEDS ORDERED: ONDANSETRON 4 MG/2 ML VIAL IVP PRN (10:50)
[2021-09-28] MEDS ORDERED: ACETAMINOPHEN 325 MG TAB PO PRN (10:50)
[2021-09-28] MEDS ORDERED: KCL 20 MEQ/WATER INJ PREMIX 200 ML IV PRN (10:50)
[2021-09-28] MEDS ORDERED: predniSONE 20 MG TAB PO SCH (11:13)
[2021-09-28] MEDS ORDERED: LIDOCAINE MPF 2% 100 MG/5 ML VIAL INJ ONE (11:15)
[2021-09-28] MEDS ORDERED: BUPIVACAINE-MPF 0.5% 30 ML VIAL INJ ONE (11:15)
--- NOTE | 2021-09-28 11:17 | NUR ---
Patient appears to be resting comfortably in bed. Vital Signs within normal limits. Respirations even and unlabored.
[2021-09-28] MEDS ORDERED: MEPERIDINE 25 MG/ML SYR IVP PRN (11:30)
[2021-09-28] MEDS ORDERED: LIDOCAINE MPF 1% 5 ML ONE (11:39)
[2021-09-28] MEDS ORDERED: LIDOCAINE 2% 1000 MG/50 ML VIAL INJ ONE (11:42)
[2021-09-28] MEDS ORDERED: fentaNYL citrate 0.05 MG/ML VIAL ONE (12:02)
[2021-09-28] MEDS ORDERED: MORPHINE SULFATE 2 MG/ML SYR IVP STA (12:15)
[2021-09-28] MEDS ORDERED: MORPHINE SULFATE 2 MG/ML SYR ONE (12:16)
--- NOTE | 2021-09-28 12:17 | NUR ---
Consent signed per PATIENT AND DR. ROE for placement of chest tube to LEFT chest. Physician marked site for placement. Time out performed with all staff involved just prior to placement. LEFT side chest cleansed with IDOINE per physician. Physician numbed site with LIDOCAINE prior to placement. # 32 FR chest tube placed to LEFT side chest per DR. ROE. Tubing sutured in place per DR. ROE. Tubing taped to chest wall with FOAM TAPE per DR. ROE. Pleuravac connected to chest tube per DR. ROE. RED drainage noted to tubing. Pleuravac secured to floor with tape. Lung sounds auscultated over LEFT chest wall. O2 sats 100% per pulse ox. Patient tolerated procedure WELL. PCXR done at bedside.
--- NOTE | 2021-09-28 12:19 | NUR ---
PT COMPLAINING OF PAIN AT THIS TIME AND ER MD MADE AWARE
--- NOTE | 2021-09-28 13:04 | NUR ---
Patient will be admitted to care of DR. DARBY. Admited to TELE. Will go to room 122B. Belongings list completed. Report to SHEA HENDRICKSON.
[2021-09-28 13:07] VITALS: BP 129/84
--- NOTE | 2021-09-28 13:07 | NUR ---
RECEIVED PATIENT FROM ER NURSE VIA [facility]. PT ADMITTED FOR BILATERAL PNEUMOTHORAX, HYPOXIC, RESP FAILURE. PT IS AOX4, ABLE TO MAKE NEEDS KNOWN. RESPIRATIONS EVEN AND LABORED. ON 15 L SIMPLE MASK WITH O2 SATURATION AT 100%. LEFT SIDE CHEST TUBE IN PLACE ON CONTINUOUS LOW SUCTION. NOTED BLOOD IN TUBING AND COLLECTION CHAMBER. SKIN IS WARM, DRY, AND NON-INTACT. ABD IS SOFT, FLAT, AND NON-DISTENDED. BOWEL SOUNDS ACTIVE IN ALL QUADRANTS. PT IS COMPLAINING OF PAIN WHERE CHEST TUBE IS PLACE. WILL MEDICATE WITH PAIN MEDS PER MD ORDERS. PLAN OF CARE DISCUSSED. SAFETY PRECAUTIONS IN PLACE. CALL LIGHT WITHIN REACH. WILL CONTINUE TO MONITOR. Addendum: 09/28/21 at 1413 by Varun Morrison RN RN PT HAS RAC 18 G AND LAC 18G. BOTH INTACT AND PATENT. SALINE LOCKED.
[2021-09-28] MEDS ORDERED: MORPHINE SULFATE 4 MG/ML SYR IVP SCH (13:15)
[2021-09-28] MEDS: AZITHROMYCIN 500 MG in DEXTROSE 5% 250 ML IV SCH (13:16)
--- NOTE | 2021-09-28 13:40 | NUR ---
DR. DARBY AND DR. MCCALL AT BEDSIDE DISCUSSING PLAN OF CARE WITH PATIENT AND FAMILY.
[2021-09-28] MEDS: ALBUTEROL SULFATE/IPRATROPIU 3 ML SOL IH SCH ×2 (14:17→19:30)
--- NOTE | 2021-09-28 14:28 | NUR ---
RT AT BEDSIDE PLACING PATIENT ON A 15L NRB MASK. O2 SATURATION AT 100%. NO DISTRESS NOTED. WILL CONTINUE TO MONITOR.
--- NOTE | 2021-09-28 14:53 | NUR ---
PATIENT HAS BEEN SCREENED AND CATEGORIZED MODERATE NUTRITION RISK. PATIENT WILL BE SEEN WITHIN 3-5 DAYS OF ADMISSION. /08/[address]
[2021-09-28 16:00] VITALS: BP 122/78
[2021-09-28] MEDS: MORPHINE SULFATE 4 MG/ML SYR IVP PRN ×2 (16:52→22:24)
--- NOTE | 2021-09-28 16:52 | NUR ---
PT COMPLAINED OF 10/10 PAIN AT CHEST TUBE SITE. ADMINISTERED PRN PAIN MEDICATIONS PER MD ORDERED.
--- NOTE | 2021-09-28 17:55 | NUR ---
RT AT BEDSIDE ADMINISTERING BREATHING TREATMENT
--- NOTE | 2021-09-28 19:40 | NUR ---
ENDORSED TO COST AND RISK ANALYSIS MANAGER NURSE FOR CONTINUITY OF CARE. PT IS STABLE.
--- NOTE | 2021-09-28 19:46 | NUR ---
GET REPORT FROM MORNING NURSE , PATIENT IS LYING ON BED, PATIENT IS ON O2 NRBM AT 15 LITER, PATIENT HAS LEFT SIDE CHEST TUBE, ,CALL LIGHT IS WITHIN THE REACH , WILL CONTINUE TO MONITOR PATIENT.
[2021-09-28] MEDS: HYDROcodone/APAP 5/325 MG 1 TAB TAB PO PRN (19:56)
[2021-09-28] MEDS: BUDESONIDE 0.5 MG/2 ML NEBU INH SCH (19:58)
--- NOTE | 2021-09-28 19:59 | NUR ---
PATIENT IS COMPLAINING OF PAIN 6/10 AT CHEST TUBE SITE, NORCO 5/325 MG GIVEN PRN PER DOCTOR ORDER, CALL LIGHT IS WITHIN THE REACH , WILL CONTINUE TO MONITOR PATIENT.
[2021-09-28 20:00] VITALS: BP 132/65
--- NOTE | 2021-09-28 20:02 | NUR ---
1950 PATIENT GIVEN OXYMIZER AT 15L SO PATIENT COULD EAT. NRB MASK IS ALSO AVAILABLE
--- NOTE | 2021-09-28 22:28 | NUR ---
PATIENT IS COMPLAINING OF PAIN AT CHEST TUBE SITE 02/09, MORPHINE 4 MG PRN GIVEN PER DOCTOR ORDER, WILL RE ASSESS PAIN LAVAL , CALL LIGHT IS WITHIN THE REACH , WILL CONTINUE TO MONITOR PATIENT.
[2021-09-29] VITALS: BP 144/60
--- NOTE | 2021-09-29 00:30 | NUR ---
PATIENT IS LYING ON BED, NO ANY COMPLAIN OF SOB AT THIS TIME, CHEST TUBE IS WORKING PROPERLY, ALL DUE MEDS ARE GIVEN PER DOCTOR ORDER, CALL LIGHT IS WITHIN THE REACH ,WILL CONTINUE TO MONITOR PATIENT.
[2021-09-29] MEDS: ALBUTEROL SULFATE/IPRATROPIU 3 ML SOL IH SCH ×4 (00:51→20:54)
[2021-09-29] MEDS: HYDROcodone/APAP 5/325 MG 1 TAB TAB PO PRN ×4 (02:17→17:51)
--- NOTE | 2021-09-29 02:20 | NUR ---
PATIENT IS COMPLAINING OF PAIN AT CHEST TUBE SITE 11/09. NORCO 5/325MG PRN GIVEN PER DR ORDER, WILL RE ASSESS PAIN LAVAL , CALL LIGHT IS WITHIN THE REACH , WILL CONTINUE TO MONITOR PATIENT.
[2021-09-29 04:00] VITALS: BP 120/53
[2021-09-29] MEDS: MORPHINE SULFATE 4 MG/ML SYR IVP PRN ×4 (04:48→20:46)
--- NOTE | 2021-09-29 04:48 | NUR ---
PATIENT IS COMPLAINING OF PAIN AT CHEST TUBE SITE 02/09, MORPHINE 4MG GIVEN PER DOCTOR ORDER,WILL REASSESS PAIN LAVAL, CALL LIGHT IS WITHIN THE REACH, WILL CONTINUE TO MONITOR PATIENT.
--- NOTE | 2021-09-29 04:53 | NUR ---
PATIENT IS LYING ON BED , VITAL SIGN IS WITHIN THE RANGE,CHEST TUBE FUNCTIONING PROPERLY, PATIENT IS COMPLAINING OF PAIN AT CHEST TUBE SITE 02/09, MORPHINE 4MG IV PIN GIVEN PER DOCTOR ORDER, WILL RE ASSESS PAIN LAVAL, ALL DUE MEDS ARE GIVEN PER DR ORDER, CALL LIGHT IS WITHIN THE REACH ,WILL CONTINUE TO MONITOR PATIENT.
[2021-09-29 06:14] LABS: BASOPHILS % (AUTO) 0.2 % (0.0-2.0); EOSINOPHILS % (AUTO) 0.3 % (0.0-4.0); HEMATOCRIT 41.7 % (36-52); HEMOGLOBIN 14.1 g/dL (12.0-18.0); LYMPHOCYTES # (AUTO) 1.9 K/uL (2.0-11.5); LYMPHOCYTES % (AUTO) 21.1 % (20.5-51.1); MEAN CORPUSCULAR HEMOGLOBIN 32 pg (27-31); MEAN CORPUSCULAR HGB CONC 34 g/dL (33-37); MEAN CORPUSCULAR VOLUME 93.8 fL (80-94); MONOCYTES # (AUTO) 0.6 K/uL (0.8-1.0); MONOCYTES % (AUTO) 7.1 % (1.7-9.3); NEUTROPHILS # (AUTO) 6.3 K/uL (1.8-7.7); NEUTROPHILS % (AUTO) 71.3 % (42.2-75.2); PLATELET COUNT (AUTO) 234 K/uL (140-450); RED BLOOD CELL COUNT(AUTO) 4.45 MIL/uL (4.20-6.10); RED CELL DISTRIBUTION WIDTH 14.1 % (11.6-13.7); WHITE BLOOD COUNT (AUTO) 8.8 K/uL (4.8-10.8)
[2021-09-29 06:25] LABS: ANION GAP 12.5 (8-16); CARBON DIOXIDE 27.6 mmol/L (21-32); CREATININE 0.8 mg/dL (0.6-1.3); POTASSIUM 4.1 mmol/L (3.5-5.1)
--- NOTE | 2021-09-29 06:40 | NUR ---
PATIENT IC COMPLAINING OF PAIN 6/10 AT CHEST TUBE SITE, NORCO 5/325MG GIVEN PER DR ORDER, WILL REASSESS PAIN LAVAL , CALL LIGHT IS WITHIN THE REACH ,WILL CONTINUE TO MONITOR PATIENT.
--- NOTE | 2021-09-29 07:20 | NUR ---
LOC AWAKE AND ALERT VERBALLY RESPONSIVE PATIENT SELF REMOVED SUPPLEMENTAL OXYGEN AT 15 LPM VIA NON REBREATHER
[2021-09-29] MEDS: BUDESONIDE 0.5 MG/2 ML NEBU INH SCH ×2 (07:30→20:54)
--- NOTE | 2021-09-29 07:30 | NUR ---
POST [facility] THERAPY PLACED PATIENT BACK ON SUPPLEMENTAL OXYGEN AT 15 LPM VIA NON REBREATHER
--- NOTE | 2021-09-29 07:34 | NUR ---
GAVE REPORT TO MORNING NURSE EMEKA, PATIENT IS STABLE.
--- NOTE | 2021-09-29 07:36 | NUR ---
RECEIVED PATIENT REPORT FROM CERTIFIED HISTOLOGIC TECHNICIAN NURSE FOR CONTINUITY OF CARE. PT IS AOX4, ABLE TO MAKE NEEDS KNOWN. RESPIRATIONS EVEN AND LABORED. ON 15 L NRB MASK WITH O2 SATURATION AT 100%. LEFT SIDE CHEST TUBE IN PLACE ON CONTINUOUS LOW SUCTION. NOTED BLOOD IN TUBING AND COLLECTION CHAMBER. SKIN IS WARM, DRY, AND NON-INTACT. IV SITE ON LAC 18 G INTACT, PATENT, AND SALINE LOCKED. PT IS COMPLAINING OF PAIN WHERE CHEST TUBE IS PLACE. WILL MEDICATE WITH PAIN MEDS PER MD ORDERS. PLAN OF CARE DISCUSSED. SAFETY PRECAUTIONS IN PLACE. CALL LIGHT WITHIN REACH. WILL CONTINUE TO MONITOR.
[2021-09-29 08:00] VITALS: BP 116/62
--- NOTE | 2021-09-29 08:54 | NUR ---
PATIENT COMPLAINED OF 8/10 PAIN ON CHEST TUBE SITE. ADMINISTERED PRN PAIN MEDICATIONS MD ORDERED.
--- NOTE | 2021-09-29 09:00 | NUR ---
ALL SCHEDULED MEDS GIVEN. PT IS STABLE. NO DISTRESS NOTED. WILL CONTINUE TO MONITOR.
[2021-09-29] MEDS: ALBUTEROL SULFATE/IPRATROPIU 3 ML SOL IH PRN ×2 (10:38→17:34)
--- NOTE | 2021-09-29 11:23 | NUR ---
PATIENT COMPLAINED OF 6/10 PAIN ON CHEST TUBE SITE. ADMINISTERED PRN PAIN MEDICATIONS MD ORDERED.
[2021-09-29 12:00] VITALS: BP 123/59
[2021-09-29] MEDS: AZITHROMYCIN 500 MG in DEXTROSE 5% 250 ML IV SCH (13:46)
--- NOTE | 2021-09-29 15:24 | NUR ---
PATIENT COMPLAINED OF 8/10 PAIN ON CHEST TUBE SITE. ADMINISTERED PRN PAIN MEDICATIONS MD ORDERED.
[2021-09-29 16:00] VITALS: BP 123/80
--- NOTE | 2021-09-29 17:51 | NUR ---
PATIENT COMPLAINED OF 6/10 PAIN ON CHEST TUBE SITE. ADMINISTERED PRN PAIN MEDICATIONS MD ORDERED.
--- NOTE | 2021-09-29 19:22 | NUR ---
ENDORSED TO HEAVY TRUCK MECHANIC NURSE FOR CONTINUITY OF CARE. PT IS STABLE
--- NOTE | 2021-09-29 19:30 | NUR ---
RECEIVED REPORT FROM RN DAYSHIFT NURSE AT BEDSIDE FOR CONTINUITY OF CARE. PT SITTING UP IN BED HE IS AOX4 AND ON 15 LITERS HI FLOW MASK. PT ALSO HAS A CHEST TUBE ON THE LEFT SIDE WITH SEROSANGUINEOUS DRAINAGE. CHEST TUBE DRESSING IS DRY AND INTACT. CHEST TUBE DRAINAGE CONTAINER IS UPRIGHT AND BUBBLING. DISCHARGE OF DRAINAGE MARKED. PT HAS INTACT AND ASYMPTOMATIC 18 GUAGE ON THE LEFT AC WHICH IS SALINE LOCKED. PT SAID THAT THE PAIN IS RETURNING AND IT IS A 7/10 ON THE LEFT SIDE. WILL MEDICATE PT PER EMAR. ALL ORDERED PRECAUTIONS IN PLACE.
[2021-09-29 20:00] VITALS: BP 119/72
--- NOTE | 2021-09-29 20:00 | NUR ---
PT SITTING UP IN BED VISITORS AT BEDSIDE. PT HAS MASK RUNNING 15 LITERS 02, ASSESSMENT DONE, LUNG SOUNDS IN THE BACK AND FRONT OF CHEST ON THE RIGHT HAS EXPIRATORY WHEEZE AND LEFT SIDE NOTED WITH CRACKLES. PT WOULD PERIODICALLY TAKE DOWN THE MASK , BUT WAS EDUCATED TO KEEP MASK ON BECAUSE IT WILL ASSIST WITH RESOLVING THE PNEUMOTHORAX. ABDOMEN SOFT, BUT PT SAID HE HADN'T HAD A BM IN 3 DAYS. PT MADE AWARE THAT THE LACK OF MOVEMENT AND THE PAIN MEDICATION WILL OFTEN CAUSE CONSTIPATION. PT ALSO HAS RESTRICTED HIS NORMAL EATING AND DRINKING DUE TO CONCERN FOR ELIMINATION. PT REMINDED THAT HE HAS URINAL AT BEDSIDE AND CAN USE A BED NEWSOME IF NEEDED. PT VERBALIZED UNDERSTANDING. AL ORDERED PRECAUTIONS IN PLACE.
--- NOTE | 2021-09-29 21:00 | NUR ---
PT IN BED HE WAS GIVEN ORDERED HEPARIN SQ AND EXPLAINED THE PURPOSE OF ORDERED MEDICATION. PT ALSO GIVEN REQUESTED MORPHINE IVP/PRN FOR 7/10 PAIN. PT REMINDED TO KEEP MASK ON MUCH POSSIBLE. VISITOR BROUGHT SOME FOOD WHICH ONLY 25% WAS CONSUMED AND THE REST BROUGHT TO PT REFRIGERATOR. ALSO REVIEWED PLAN OF CARE AND IMAGING RESULTS WITH PT AND FIANCE AT BEDSIDE. THEY VERBALIZED UNDERSTANDING. ALL ORDERED PRECAUTIONS IN PLACE.
--- NOTE | 2021-09-29 22:30 | NUR ---
ROUNDS DONE, PT SITTING ON THE EDGE OF BED WITH MASK OFF. PT REMINDED TO KEEP MASK ON AND TO STAY IN BED SO THAT CHEST TUBE CONTAINER STAYS UPRIGHT AND CHEST TUBE STAYS IN PLACE. PT VERBALIZED UNDERSTANDING. PT FAMILY/LOVED ONES DROPPED OFF MORE BELONGINGS IN A BAG WHICH WAS DELIVERED TO PT AT BEDSIDE. ALSO ALL OTHER REQUESTS ATTENDED BY STAFF. ALL ORDERED PRECAUTIONS IN PLACE.
--- NOTE | 2021-09-29 23:00 | NUR ---
PT PUT ADMINISTRATION DEAN LIGHT, HE SAID THAT CHEST TUBE CONTAINER WAS KNOCKED OVER, BUT PICKED UP QUICKLY. CHEST TUBE CONTAINER OK STILL BUBBLING APPROPRIATE NO LEAKS FOUND IN CHEST TUBE, PT HAS NO C/O OF SOB, BUT 02 WAS 89% ON ROOM AIR. PT SAID HE WANTED TO GO TO THE TOILET AND TRY TO HAVE A BM. PT CHEST TUBE WAS TAPPED TO THE FLOOR AND PT APOLOGIZED AND SAID THAT HE WILL STAY IN BED AND KEEP MASKS ON. REMINDED PT THAT HE HAS THE URINAL AND IF NEEDED WE CAN PROVIDE A BED NEWSOME FOR BM. AND HE HAS A MALE AIDE TO HELP. PT VERBALIZED UNDERSTANDING. ALL ORDERED PRECAUTIONS IN PLACE.
[2021-09-30] VITALS: BP 125/88
[2021-09-30] MEDS: MORPHINE SULFATE 4 MG/ML SYR IVP PRN ×4 (01:18→22:52)
[2021-09-30] MEDS: ALBUTEROL SULFATE/IPRATROPIU 3 ML SOL IH SCH ×4 (01:23→22:11)
--- NOTE | 2021-09-30 01:30 | NUR ---
PT WAS GIVEN HIS NEB TREATMENT AT BEDSIDE BY RT. AFTERWARD PT COUGHING WITH C/O OF SEVERE PAIN 12/09, HE WAS GIVEN IVP MORPHINE WITH RELIEF. PT ALSO GIVEN REQUESTED SNACKS AT BEDSIDE. CHEST TUBE INTACT AND DRAINING SEROSANGUINEOUS DRAINAGE AND CHEST TUBE CONTAINER UPRIGHT AND BUBBLING NORMALLY. ALL ORDERED PRECAUTIONS IN PLACE.
[2021-09-30 04:00] VITALS: BP 117/67
[2021-09-30] MEDS: KETOROLAC 15 MG/ML VIAL IM PRN ×3 (05:06→20:42)
--- NOTE | 2021-09-30 05:30 | NUR ---
PT C/O OF MODERATE PAIN IN LEFT CHEST AND WAS GIVEN IM TORADOL FOR PAIN . PT ALSO GIVEN AM CARE REQUESTED. ALL ORDERED PRECAUTIONS IN PLACE.
[2021-09-30 05:54] LABS: ANION GAP 10.3 (8-16); CARBON DIOXIDE 29.4 mmol/L (21-32); CREATININE 0.9 mg/dL (0.6-1.3); POTASSIUM 3.7 mmol/L (3.5-5.1)
--- NOTE | 2021-09-30 06:20 | NUR ---
CXR AT BEDSIDE
[2021-09-30 06:39] LABS: BASOPHILS % (AUTO) 0.4 % (0.0-2.0); EOSINOPHILS # (AUTO) 0.4 K/uL (0-0.4); EOSINOPHILS % (AUTO) 5.9 % (0.0-4.0); HEMATOCRIT 40.9 % (36-52); HEMOGLOBIN 13.6 g/dL (12.0-18.0); LYMPHOCYTES % (AUTO) 39.8 % (20.5-51.1); MEAN CORPUSCULAR HEMOGLOBIN 31 pg (27-31); MEAN CORPUSCULAR HGB CONC 33 g/dL (33-37); MEAN CORPUSCULAR VOLUME 94.1 fL (80-94); MONOCYTES # (AUTO) 0.7 K/uL (0.8-1.0); MONOCYTES % (AUTO) 8.7 % (1.7-9.3); NEUTROPHILS # (AUTO) 3.4 K/uL (1.8-7.7); NEUTROPHILS % (AUTO) 45.2 % (42.2-75.2); PLATELET COUNT (AUTO) 220 K/uL (140-450); RED BLOOD CELL COUNT(AUTO) 4.35 MIL/uL (4.20-6.10); RED CELL DISTRIBUTION WIDTH 13.8 % (11.6-13.7); WHITE BLOOD COUNT (AUTO) 7.6 K/uL (4.8-10.8)
[2021-09-30] MEDS: BUDESONIDE 0.5 MG/2 ML NEBU INH SCH ×2 (07:20→22:11)
--- NOTE | 2021-09-30 07:30 | NUR ---
RECEIVED PATIENT REPORT FROM PROFESSOR OF VEGETABLE SCIENCE NURSE FOR CONTINUITY OF CARE. PT IS AOX4, ABLE TO MAKE NEEDS KNOWN. RESPIRATIONS EVEN AND LABORED. ON 15 L NRB MASK WITH O2 SATURATION AT 100%. LEFT SIDE CHEST TUBE IN PLACE ON CONTINUOUS LOW SUCTION. NOTED BLOOD IN TUBING AND COLLECTION CHAMBER. SKIN IS WARM, DRY, AND NON-INTACT. IV SITE ON LAC 18 G INTACT, PATENT, AND SALINE LOCKED. PT IS COMPLAINING OF PAIN WHERE CHEST TUBE IS PLACE. WILL MEDICATE WITH PAIN MEDS PER MD ORDERS. PLAN OF CARE DISCUSSED. SAFETY PRECAUTIONS IN PLACE. CALL LIGHT WITHIN REACH. WILL CONTINUE TO MONITOR.
[2021-09-30 08:00] VITALS: BP 138/96
--- NOTE | 2021-09-30 09:24 | NUR ---
PT COMPLAINED OF 7/10 PAIN CHEST TUBE SITE. ADMINISTERED PRN PAIN MEDS PER MD ORDERED.
--- NOTE | 2021-09-30 11:34 | NUR ---
PT COMPLAINED OF 6/10 PAIN CHEST TUBE SITE. ADMINISTERED PRN PAIN MEDS PER MD ORDERED.
--- NOTE | 2021-09-30 11:48 | NUR ---
PT REQUESTED BREATHING TX - STATED HE FEELS BETTER WITH THE MEDNEB TXS - PT SATS 100 ON ROOM AIR BUT LIKES TO WEAR NON-REBREATHER OVER NASAL CANNULA OR ROOM AIR - HE BECOMES ANXIOUS ABOUT PAIN AND HIS RESPIRATIONS.
[2021-09-30 12:00] VITALS: BP 114/63
[2021-09-30] MEDS: AZITHROMYCIN 500 MG in DEXTROSE 5% 250 ML IV SCH (12:30)
--- NOTE | 2021-09-30 12:45 | NUR ---
ALL SCHEDULED MEDS GIVEN. PT IS STABLE. NO DISTRESS NOTED. WILL CONTINUE TO MONITOR.
--- NOTE | 2021-09-30 15:33 | NUR ---
PT COMPLAINED OF 7/10 PAIN CHEST TUBE SITE. ADMINISTERED PRN PAIN MEDS PER MD ORDERED.
--- NOTE | 2021-09-30 15:33 | NUR ---
ALL SCHEDULED MEDS GIVEN. PT IS STABLE. NO DISTRESS NOTED. WILL CONTINUE TO MONITOR. Addendum: 09/30/21 at 1537 by Varun Morrison RN RN WRONG TIMESTAMP
[2021-09-30 16:00] VITALS: BP 124/81
--- NOTE | 2021-09-30 17:06 | NUR ---
DR. VANEGAS AT PATIENT'S BEDSIDE DISCUSSING PLAN OF CAR
--- NOTE | 2021-09-30 19:25 | NUR ---
ENDORSED TO CARPENTRY PROFESSIONAL NURSE FOR CONTINUITY OF CARE. PT IS STABLE.
--- NOTE | 2021-09-30 19:30 | NUR ---
RECEIVED REPORT AT BEDSIDE FOR CONTINUITY OF CARE, PT IN STABLE CONDITION. PT SITTING UP IN BED HE IS AOX4 AND HAS AN 18G ON THE RIGHT AC WHICH IS SALINE LOCKED. ALL UNIVERSAL FALLS PRECAUTIONS IN PLACE.
[2021-09-30 20:00] VITALS: BP 127/73
--- NOTE | 2021-09-30 20:45 | NUR ---
PT C/O OF MODERATE 6/10 PAIN AND REQUESTED AND WAS GIVEN IM TORADOL FOR LEFT CHEST PAIN. V/S FOLLOWS: T 99.5 P 70 R 20 B/P 127/73 02 100% ON 15 LITERS NON REBREATHER.
--- NOTE | 2021-09-30 21:30 | NUR ---
PT GIVEN HEPARIN SQ ORDERED. MEDICATION EDUCATION PROVIDED AT BEDSIDE, PT VERBALIZED UNDERSTANDING.
--- NOTE | 2021-09-30 22:30 | NUR ---
PT C/O THAT IT SMELLS BY THE CHEST TUBE AREA. RN FROM ICU CALLED DOWN TO HELP AT BEDSIDE. DRESSING AND TUBE SET UP WAS REPLACED. PT HAS NO FURTHER C/O VOICED.
[2021-10-01] VITALS: BP 121/81
[2021-10-01] MEDS: ALBUTEROL SULFATE/IPRATROPIU 3 ML SOL IH SCH ×4 (01:00→19:05)
[2021-10-01] MEDS: HYDROcodone/APAP 5/325 MG 1 TAB TAB PO PRN (01:06)
--- NOTE | 2021-10-01 01:30 | NUR ---
PT ORDERED FOOD FOR DELIVERY. HE ATE WELL ( PT DOESN'T LIKE THE FOOD PROVIDED AT HOSPITAL). PT C/O OF MODERATE PAIN IN LEFT SIDE AND WAS GIVEN PO/PRN NORCO FOR 5/10 LEFT SIDED CHEST. V/S FOLLOWS: T 98.8 P 73 R 20 B/P 121/81 02 95% OFF NON REBREATHER MASK. ALL ORDERED PRECAUTIONS IN PLACE.
[2021-10-01 04:00] VITALS: BP 117/70
[2021-10-01 05:15] LABS: ANION GAP 9.5 (8-16); CARBON DIOXIDE 31.5 mmol/L (21-32)
[2021-10-01] MEDS: MORPHINE SULFATE 4 MG/ML SYR IVP PRN ×3 (05:22→18:47)
[2021-10-01 05:32] LABS: BASOPHILS % (AUTO) 0.5 % (0.0-2.0); EOSINOPHILS # (AUTO) 0.9 K/uL (0-0.4); HEMATOCRIT 43.3 % (36-52); HEMOGLOBIN 14.8 g/dL (12.0-18.0); LYMPHOCYTES # (AUTO) 2.7 K/uL (2.0-11.5); LYMPHOCYTES % (AUTO) 39.5 % (20.5-51.1); MEAN CORPUSCULAR HEMOGLOBIN 32 pg (27-31); MEAN CORPUSCULAR HGB CONC 34 g/dL (33-37); MEAN CORPUSCULAR VOLUME 93.6 fL (80-94); MONOCYTES # (AUTO) 0.7 K/uL (0.8-1.0); MONOCYTES % (AUTO) 10.7 % (1.7-9.3); NEUTROPHILS # (AUTO) 2.4 K/uL (1.8-7.7); NEUTROPHILS % (AUTO) 35.3 % (42.2-75.2); PLATELET COUNT (AUTO) 270 K/uL (140-450); RED BLOOD CELL COUNT(AUTO) 4.63 MIL/uL (4.20-6.10); RED CELL DISTRIBUTION WIDTH 13.6 % (11.6-13.7); WHITE BLOOD COUNT (AUTO) 6.7 K/uL (4.8-10.8)
--- NOTE | 2021-10-01 05:33 | NUR ---
PT IN BED LABS DRAWS DONE AT BEDSIDE. PT C/ OF SEVERE PAIN ; HE WAS GIVEN IVP /PRN MORPHINE V/S FOLLOWS: T 98.5 P 80 R 20 B/P 117/70 02 95% ON ROOM AIR/100% ON NON REBREATHER MASK. ALL ORDERED PRECAUTIONS IN PLACE.
[2021-10-01] MEDS: KETOROLAC 15 MG/ML VIAL IM PRN ×3 (07:05→21:17)
--- NOTE | 2021-10-01 07:10 | NUR ---
PT C/O OF MODERATE PAIN 5/10 AND WAS GIVEN IM TORADOL. WILL ENDORSE TO MONITOR FOR PAIN RELIEF.
--- NOTE | 2021-10-01 07:58 | NUR ---
LOC AWAKE AND ALERT VERBALLY RESPONSIVE RECEIVED ON SUPPLEMENTAL OXYGEN AT 15 LPM VIA NON REBREATHER; CHEST TUBE REMAINS AT RIGHT SIDE WITH PLEURAL VAC ON AND FUNCTIONING WELL
[2021-10-01] MEDS: BUDESONIDE 0.5 MG/2 ML NEBU INH SCH ×2 (08:08→19:05)
--- NOTE | 2021-10-01 08:15 | NUR ---
RECIEVED REPORT FROM NIGHT NURSE, PT AWAKE AND CONVERSE WITH THE NURSE.[email or web address]
--- NOTE | 2021-10-01 08:53 | NUR ---
PT. WITH LOW NOEMI SCALE AT MILD RISK, CONTINUE TO FOLLOW PRESSURE INJURY PREVENTION INTERVENTIONS. -POSITIONING: TURN AND REPOSITION PATIENT Q 2H OR SOONER USE PILLOWS TO KEEP BONY PROMINENCES FROM DIRECT CONTACT WITH SURFACES USE REPOSITIONING WEDGES TO PROVIDE 30-DEGREE ANGLE FOR SIDE LYING POSITIONS OFFLOADING OR FOAM DRESSING TO ALL TUBING TO PREVENT MEDICAL DEVICES RELATED PRESSURE INJURY -RE-EVALUATING AND MANAGING INCONTINENCE MONITOR SKIN CONDITION DURING POSITION CHANGE DO NOT MASSAGE REDNESS, BONY PROMINENCES FREQUENT BRYANT-CARE AND PROVIDE BARRIER CREAMS PRN IF SOILING MOISTURE CONTROL BY OFFER BED NEWSOME/URINAL /ABSORBENT PAD TO WICK AND HOLD MOISTURE KEEP SKIN DRY AND PROTECT FROM FRICTION -MANAGE FRICTION/SHEAR/MOBILITY KEEP HOB AT THE LOWEST LEVEL OF ELEVATION NO MORE THAN 30 DEGREE UNLESS OTHERWISE CONTRAINDICATED USE LIFT SHEET OR TRANSFER DEVICE TO MOVE PATIENT AND PREVENT LATERAL SHEER. PROTECT HEELS, ELBOWS BONY PROMINENCES WITH SKIN BERRIES OR FOAM DRESSING IF EXPOSED TO FRICTION OFFLOAD BILATERAL HEELS BY PLACING PILLOWS UNDER CALVES AT ALL TIMES, UNLESS OTHERWISE CONTRAINDICATED -PRESSURE REDISTRIBUTION SURFACE THERAPY LOCO ISOFLEX MATTRESS -NUTRITION: PLEASE FOLLOW RD RECOMMENDATIONS AND OFFER NUTRITION SUPPLEMENTS IF ORDERED. PLEASE CONTACT WOUND CARE NURSE FOR ANY QUESTION AND CHANGE OF WOUND CONDITION.
[2021-10-01] MEDS: AZITHROMYCIN 500 MG in DEXTROSE 5% 250 ML IV SCH (13:27)
--- NOTE | 2021-10-01 14:01 | NUR ---
DC PLANNING SW ALONGSIDE CM MET WITH PATIENT AT BEDSIDE FOR THE PURPOSE OF DISCUSSING AND GATHERING COLLATERAL INFORMATION. PATIENT REPORTED LIVING AT THE ADDRESS LISTED WITH HIS MOTHER AND THREE BROTHERS. PATIENT REPORTED EMERGENCY CONTACT BROTHERS MYRIAM BOWLING [phone] AND CHECO BOWLING [phone]. PATIENT REPORTS MEDICAL DECISION MAKER BROTHER CHECO. SW INQUIRED ON A.D; PATIENT DENIED CURRENTLY HAVING A.D IN PLACE. SW PROVIDED PATIENT WITH INFORMATION, PATIENT WAS RECEPTIVE AND ACCEPTED A.D PACKET PROVIDED BY SW. PATIENT REPORTS MEETING WITH PCP HOWEVER, THE PANDEMIC AND HIS WORK SCHEDULE MAKE MEETING WITH PCP INCREASINGLY DIFFICULT. SW SPOKE WITH PATIENT ON THE IMPORTANCE OF FOLLOW UP CARE, PATIENT WAS RECEPTIVE AND PROVIDED SW WITH PERMISSION TO SCHEDULE FOLLOW UP APPT, ONCE CLEARED FOR DC. PATIENT REPORTED DR. BARCENAS PCP HOWEVER, REPORTED DR. SPRINGER IS HIS PREFERRED DR. 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 PATIENT REPORTS RETRIEVING MEDICATION FROM [facility] [address] IN THE [facility], WHEN NEEDED. PATIENT DISCLOSED MEETING WITH A PSYCHIATRIST 1X MONTHLY VIA TELE-PSYCH. PATIENT REPORTS BEING INDEPENDENT. PATIENT REPORTS ADEQUATE FRIEND AND FAMILY SUPPORT AND REPORTS THAT FAMILY WILL MOLD CHANGER FROM HOSPITAL AND AID IN HIS CARE, IF NEEDED. SW INQUIRED ON HX OF SUBSTANCE USE, PATIENT DENIED PAST OR CURRENT HX OF SUSBSTANCE USE. SW INQUIRED ON ADDITIONAL RESOURCES NEEDED, PATIENT DECLINED AT THIS TIME. Addendum: 10/04/21 at 1522 by Baltazar MOTA LATE ENTRY, PATIENT WAS GIVEN APPT CARD AT 2:00PM ON 10/03/21 SW OUTREACHED TO PATIENTS PCP OFFICE [phone] TO SCHEDULE FOLLOW UP APPT. HERO SPOKE WITH TRACIE AND SCHEDULED FOLLOW UP APPT SET FOR 10/10/21 AT 1:00PM WITH AT [address] [place] [id number]. SW PROVIDED PATIENT WITH APPT CARD WITH APPT DETAILS THAT INCLUDED DATE, TIME AND ADDRESS. PATIENT WAS APPRECIATIVE.
--- NOTE | 2021-10-01 14:19 | NUR ---
PATIENT REFUSAL TO OPEN MOUTH FOR OROPHARYNGEAL SUCTIONING Addendum: 10/01/21 at 1458 by Ben Fisher RT DOCUMENTED ON WRONG PATIENT
--- NOTE | 2021-10-01 14:40 | NUR ---
10/01/21 RD INITIAL ASSESSMENT COMPLETED PLEASE REFER TO NUTRITION ASSESSMENT UNDER CARE ACTIVITY FOR ESTIMATED NUTRITIONAL NEEDS. 1. CONTINUE REGULAR DIET TOLERATED -RECOMMEND ORAL SUPPLEMENTS IF PT PO INTAKE IS < 75% 2. RD TO FOLLOW-UP 7 DAYS, LOW RISK ESPINOZA IRIZ[address] RD
--- NOTE | 2021-10-01 14:55 | NUR ---
PATIENT IN BATHROOM AT THIS TIME RAWHIDE BONE ROLLER TO ATTEMPT HHN THERAPY AT A LATER TIME NO DISTRESS NOTED
--- NOTE | 2021-10-01 15:28 | NUR ---
DC PLANNING: THE PATIENT WAS BIBA TO THE ED FOR C/O SOB AND COUGH. O2 SATS WAS 82% ON RA, PATIENT GIVEN EPI,NEBULIZER RX AND CPAP IN THE FIELD. PATIENT ON NORCO AND PRESNISONE X 2 DAYS, NOW WITH ONSET OF BACK PAIN WELL SOB. H/O ASTHMA, MARIJUANA USE. CXR SHOWED BILATERAL PNEUMOTHORAX WITHOUT MEDIASTINAL SHIFT. 25% ON THE LEFT AND 15% ON THE RIGHT, LEFT CHEST TUBE PLACED IN ED TO CONTINUOUS SUCTION/WATER SEAL. DAILY CXR TO EVALUATE RESOLUTION OF PNEUMOTHORACES. ON HIGH FLOW O2 AT 15 L. CHEST TUBE OUTPUT 60-80 ML. PATIENT ALSO ON DUONEBS, ZITHROMAX. CM SPOKE WITH THE PATIENT AT BEDSIDE AND CONFIRMED HIS ADDRESS AND PHONE NUMBER. HE LIVES IN A SINGLE STORY HOUSE WITH HIS MOTHER AND THREE BROTHERS AND SEES HIS PCP/PA REGULARLY. HE ALSO FOLLOWS UP WITH HIS PSYCHIATRIST MONTHLY FOR MEDICATION MONITORING AND REFILLS. 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 FAMILY IS ABLE TO TRANSPORT PATIENT HOME WHEN HE IS STABLE FOR DISCHARGE. CM WILL FOLLOW.
[2021-10-01 16:26] VITALS: BP 122/45
--- NOTE | 2021-10-01 17:11 | NUR ---
c\o infiltrate, started iv with 20G on left middle arm. [email or web address]
--- NOTE | 2021-10-01 19:30 | NUR ---
RECEIVED PT FROM AM SHIFT NURSE FOR CONTINUITY OF CARE. PT A&OX4, PT ON OXYMIZER 10L, BREATHING EQUAL AND UNLABORED. NO RESPIRATORY DISTRESS NOTED. PT HAS A CHEST TUBE ON L SIDE, DRAINING BY GRAVITY.COMPLAIN OF MILD PAIN ON CHEST TUBE SITE.ALL PRECAUTIONS IN PLACE.CALL LIGHT WITHIN REACH. WILL CONTINUE TO MONITOR.
[2021-10-01 20:00] VITALS: BP 138/66
--- NOTE | 2021-10-01 20:02 | NUR ---
1920 PATIENT WANTS TO WEAR OXYMIZER INSTEAD OF NRB MASK. OXYMIZER IS ON AT 10L
--- NOTE | 2021-10-01 21:00 | NUR ---
DUE MEDS GIVEN. PT TOLERATED WELL. WILL CONTINUE TO MONITOR.
--- NOTE | 2021-10-01 21:20 | NUR ---
PT COMPLAINED OF PAIN ON CHEST TUBE SITE. PRN PAIN MEDICATION GIVEN. PT TOLERATED WELL.WILL CONTINUE TO MONITOR.
[2021-10-02] VITALS: BP 130/67
--- NOTE | 2021-10-02 00:07 | NUR ---
PT ASLEEP. BREATHING EQUAL AND UNLABORED, NO DISTRES NOTED. O2 SAT AT 99%. WILL CONTINUE TO MONITOR.
[2021-10-02] MEDS: MORPHINE SULFATE 4 MG/ML SYR IVP PRN ×5 (00:13→21:55)
[2021-10-02] MEDS: ALBUTEROL SULFATE/IPRATROPIU 3 ML SOL IH SCH ×4 (01:10→21:14)
[2021-10-02] MEDS: HYDROcodone/APAP 5/325 MG 1 TAB TAB PO PRN ×2 (01:30→10:06)
[2021-10-02 04:00] VITALS: BP 126/64
[2021-10-02 05:35] LABS: BASOPHILS % (AUTO) 0.7 % (0.0-2.0); EOSINOPHILS % (AUTO) 14.5 % (0.0-4.0); HEMATOCRIT 42.2 % (36-52); HEMOGLOBIN 14.4 g/dL (12.0-18.0); LYMPHOCYTES # (AUTO) 2.7 K/uL (2.0-11.5); LYMPHOCYTES % (AUTO) 39.6 % (20.5-51.1); MEAN CORPUSCULAR HEMOGLOBIN 32 pg (27-31); MEAN CORPUSCULAR HGB CONC 34 g/dL (33-37); MONOCYTES # (AUTO) 0.7 K/uL (0.8-1.0); MONOCYTES % (AUTO) 9.6 % (1.7-9.3); NEUTROPHILS # (AUTO) 2.4 K/uL (1.8-7.7); NEUTROPHILS % (AUTO) 35.6 % (42.2-75.2); PLATELET COUNT (AUTO) 262 K/uL (140-450); RED BLOOD CELL COUNT(AUTO) 4.54 MIL/uL (4.20-6.10); RED CELL DISTRIBUTION WIDTH 13.4 % (11.6-13.7); WHITE BLOOD COUNT (AUTO) 6.8 K/uL (4.8-10.8)
--- NOTE | 2021-10-02 05:36 | NUR ---
VITAL SIGNS STABLE. BREATHING EQUAL AND UNLABORED, NO DISTRESS NOTED. CALL LIGHT WITHIN REACH.WILL CONTINUE TO MONITOR.
[2021-10-02 05:43] LABS: ANION GAP 10.2 (8-16); CREATININE 0.9 mg/dL (0.6-1.3); POTASSIUM 4.2 mmol/L (3.5-5.1)
--- NOTE | 2021-10-02 07:20 | NUR ---
RECEIVED PT FROM JAVA DEVELOPMENT TEAM LEAD NURSE FOR CONTINUITY OF CARE. PT AWAKE, RESTING IN BED. COMPLAINING OF PAIN ON LEFT UPPER BACK 01/09. CLARIFIED THAT PAIN IS NOT ON THE CHEST TUBE SITE. CHEST TUBE SITE DRESSING INTACT WITH 45CC OF SEROSANGUINEOUS OUTPUT. NO SIGNS OF DISTRESS NOTED. RESPIRATIONS EVEN AND UNLABORED IN OXYMIZER 10L SATING AT 100%. A&O4. PT ABLE TO VERBALIZE NEEDS. SKIN INTACT, WARM AND DRY TO TOUCH. IV AT LAC 20G SALINE LOCK. CALL LIGHT WITHIN REACH SAFETY MEASURES IN PLACE. WILL CONTINUE TO MONITOR.
[2021-10-02] MEDS: KETOROLAC 15 MG/ML VIAL IM PRN ×2 (07:43→15:55)
--- NOTE | 2021-10-02 07:43 | NUR ---
ADMINISTERED PRN PAIN MED ORDERED.
[2021-10-02 08:00] VITALS: BP 125/68
[2021-10-02] MEDS: BUDESONIDE 0.5 MG/2 ML NEBU INH SCH ×2 (08:00→19:30)
--- NOTE | 2021-10-02 09:50 | NUR ---
DR VANEGAS AT BEDSIDE.
--- NOTE | 2021-10-02 10:06 | NUR ---
PT COMPLAINT OF PAIN 11/09. ADMINISTERED PRN PAIN MED ORDERED.
--- NOTE | 2021-10-02 10:10 | NUR ---
RADIOLOGY STAFF AND NURSE WHEELED PT FOR CHEST X-RAY.
--- NOTE | 2021-10-02 10:25 | NUR ---
PT BACK FROM RADIOLOGY. PT ON STABLE CONDITION. NO DISTRESS NOTED. CHEST TUBE INTACT, PROPERLY WORKING. WILL CONTINUE TO MONITOR.
[2021-10-02 12:00] VITALS: BP 124/74
[2021-10-02] MEDS: AZITHROMYCIN 500 MG in DEXTROSE 5% 250 ML IV SCH (13:29)
--- NOTE | 2021-10-02 13:29 | NUR ---
GAVE AZITHROMYCIN IVPB TO PT.
--- NOTE | 2021-10-02 13:57 | NUR ---
DR PARNELL AT BEDSIDE. INFORMED ABOUT EXPIRING ZITHROMYCIN ORDER. NO NEED TO RENEW ORDER.
--- NOTE | 2021-10-02 15:15 | NUR ---
PT JUST FINISHED EATING HIS FOOD. RT NOW AT BEDSIDE GIVING BREATHING TREATMENT. O2 SAT AT 93%.
[2021-10-02 16:00] VITALS: BP 125/72
--- NOTE | 2021-10-02 17:50 | NUR ---
GOT A CALL FROM DR VANEGAS VERIFYING RESULT OF THE CHEST XRAY DONE THIS MORNING. ORDER TO CLAMP THE CHEST TUBE AND REPEAT 2 VIEW CHEST XRAY AT 7AM 10/03/21. INFORMED PT. PT VERBALIZED UNDERSTANDING.
--- NOTE | 2021-10-02 19:16 | NUR ---
ENDORSED PT TO SOFTWARE ENGINEER ADVISOR NURSE FOR CONTINUITY OF CARE. ALL NEEDS MET THROUGHOUT SHIFT. WILL CONTINUE TO MONITOR.
--- NOTE | 2021-10-02 19:30 | NUR ---
RECEIVED PT FROM AM SHIFT NURSE FOR CONTINUITY OF CARE. PT A&OX4,FAMILY AT BEDSIDE. PT ON OXIMIZER 10L,O2 AT 99%. BREATHING EQUAL AND UNLABORED. FAMILY AT BEDSIDE.NO RESPIRATORY DISTRESS NOTED. PT HAS A CHEST TUBE ON L SIDE,NOW CLAMPED.COMPLAIN OF PAIN ON CHEST TUBE SITE.ALL PRECAUTIONS IN PLACE.CALL LIGHT WITHIN REACH. WILL CONTINUE TO MONITOR.
[2021-10-02 20:00] VITALS: BP 131/76
--- NOTE | 2021-10-02 21:30 | NUR ---
DUE MEDS GIVEN. PT TOLERATED WELL. WILL CONTINUE TO MONITOR.
--- NOTE | 2021-10-02 22:00 | NUR ---
PT COMPLAINED OF 8/10 PAIN ON CHEST TUBE SITE. PRN PAIN MEDICATION GIVEN. PT TOLERATED WELL.WILL CONTINUE TO MONITOR.
[2021-10-03] VITALS: BP 127/60
[2021-10-03] MEDS: KETOROLAC 15 MG/ML VIAL IM PRN (00:53)
--- NOTE | 2021-10-03 00:58 | NUR ---
PT COMPLAINED OF 6/10 PAIN ON CHEST TUBE SITE. PRN PAIN MEDICATION GIVEN. PT TOLERATED WELL.WILL CONTINUE TO MONITOR.
[2021-10-03] MEDS: ALBUTEROL SULFATE/IPRATROPIU 3 ML SOL IH SCH ×4 (01:19→12:13)
--- NOTE | 2021-10-03 02:18 | NUR ---
PT ASLEEP. BREATHING EQUAL AND UNLABORED, NO DISTRESS NOTED. O2 SAT AT 99%. WILL CONTINUE TO MONITOR.
[2021-10-03 04:00] VITALS: BP 124/59
[2021-10-03 05:15] LABS: BASOPHILS % (AUTO) 0.6 % (0.0-2.0); EOSINOPHILS # (AUTO) 0.9 K/uL (0-0.4); EOSINOPHILS % (AUTO) 14.1 % (0.0-4.0); HEMATOCRIT 43.2 % (36-52); HEMOGLOBIN 14.8 g/dL (12.0-18.0); LYMPHOCYTES # (AUTO) 2.6 K/uL (2.0-11.5); LYMPHOCYTES % (AUTO) 40.7 % (20.5-51.1); MEAN CORPUSCULAR HEMOGLOBIN 32 pg (27-31); MEAN CORPUSCULAR HGB CONC 34 g/dL (33-37); MEAN CORPUSCULAR VOLUME 93.3 fL (80-94); MONOCYTES # (AUTO) 0.6 K/uL (0.8-1.0); MONOCYTES % (AUTO) 9.9 % (1.7-9.3); NEUTROPHILS # (AUTO) 2.2 K/uL (1.8-7.7); NEUTROPHILS % (AUTO) 34.7 % (42.2-75.2); PLATELET COUNT (AUTO) 282 K/uL (140-450); RED BLOOD CELL COUNT(AUTO) 4.63 MIL/uL (4.20-6.10); RED CELL DISTRIBUTION WIDTH 13.4 % (11.6-13.7); WHITE BLOOD COUNT (AUTO) 6.4 K/uL (4.8-10.8)
[2021-10-03 05:37] LABS: ANION GAP 10.9 (8-16); CARBON DIOXIDE 29.1 mmol/L (21-32)
--- NOTE | 2021-10-03 06:37 | NUR ---
PT IS STABLE.NO ACUTE DISTRESS THROUGHOUT THE NIGHT. ALL NEEDS MET. NO DISTRESS NOTED. ALL PRECAUTIONS IN PLACE. CALL LIGHT WITHIN REACH. WILL ENDORSE TO AM SHIFT NURSE.
--- NOTE | 2021-10-03 07:30 | NUR ---
RECEIVED PATIENT REPORT FROM ATTENDANCE SECRETARY NURSE FOR CONTINUITY OF CARE. PT IS AOX4, ABLE TO MAKE NEEDS KNOWN. RESPIRATIONS EVEN AND LABORED. ON RA, O2SAT 96%. LEFT SIDE CHEST TUBE IN PLACE, CLAMPED. SKIN IS WARM, DRY, AND NON-INTACT. IV SITE ON LAC 20 G INTACT, PATENT, AND SALINE LOCKED. PLAN OF CARE DISCUSSED. SAFETY PRECAUTIONS IN PLACE. CALL LIGHT WITHIN REACH. WILL CONTINUE TO MONITOR.
[2021-10-03] MEDS: BUDESONIDE 0.5 MG/2 ML NEBU INH SCH (07:45)
[2021-10-03 08:00] VITALS: BP 118/72
--- NOTE | 2021-10-03 08:40 | NUR ---
DUE MEDS GIVEN. WITH C/O PAIN AT CHEST TUBE SITE 01/09, MORPHINE GIVEN ORDERED
[2021-10-03] MEDS: MORPHINE SULFATE 4 MG/ML SYR IVP PRN ×2 (08:51→16:58)
--- NOTE | 2021-10-03 11:16 | NUR ---
PT RESTING IN BED, NO COMPLAINTS AT THIS TIME
[2021-10-03 12:00] VITALS: BP 148/79
[2021-10-03] MEDS: AZITHROMYCIN 500 MG in DEXTROSE 5% 250 ML IV SCH (13:00)
[2021-10-03] MEDS ORDERED: KETOROLAC 15 MG/ML VIAL ONE (13:27)
[2021-10-03] MEDS ORDERED: KETOROLAC 15 MG/ML VIAL IVP PRN (13:35)
--- NOTE | 2021-10-03 14:00 | NUR ---
PT COMPLAINED OF 6/10 PAIN ON CHEST TUBE SITE. TORADOL GIVEN ORDERED.
[2021-10-03 16:00] VITALS: BP 127/73
--- NOTE | 2021-10-03 16:40 | NUR ---
DR VANEGAS AT BEDSIDE, CHEST TUBE REMOVED, OCCLUSIVE DRESSING PLACED, WILL DO CXR
--- NOTE | 2021-10-03 17:15 | NUR ---
CLEARED FOR DISCHARGE BY DR VANEGAS, NOTIFIED DR PARNELL.
[2021-10-03] MEDS: ALBUTEROL SULFATE/IPRATROPIU 3 ML SOL IH PRN (17:30)
--- NOTE | 2021-10-03 18:45 | NUR ---
DISCHARGE INSTRUCTIONS AND PRESCRIPTION GIVEN. VERBALIZED UNDERSTANDING
--- NOTE | 2021-10-03 18:55 | NUR ---
DISCHARGED PT, PICKED UP BY CAM
== END 2021-10-03 18:55 | disposition home or self-care (01) | DRG 143 ==
LOC: MED 09:05 → MIC 10:47 → MTU 11:13
PROVIDERS: ADMIT Student in an Organized Health Care Education/Training Program; ATTEND Student in an Organized Health Care Education/Training Program
PROC: 0W9B30Z Drainage of Left Pleural Cavity with Drainage Device, Percutaneous Approach (ICD-10-PCS; principal; 2021-09-28)
DX: J93.9 Pneumothorax, unspecified (principal); J96.01 Acute respiratory failure with hypoxia; J45.40 Moderate persistent asthma, uncomplicated; F17.210 Nicotine dependence, cigarettes, uncomplicated; F90.9 Attention-deficit hyperactivity disorder, unspecified type; F12.90 Cannabis use, unspecified, uncomplicated; Z20.822 Contact with and (suspected) exposure to COVID-19; R65.10 Systemic inflammatory response syndrome (SIRS) of non-infectious origin without acute organ dysfunction
CPT/HCPCS: 36415; 70491; 71045; 71046; 71260; 80048; 80053; 85025; 85610; 85730; 87081; 94640; 96374; 96375; 96376; 99291; J0456; J1644; J1885; J2001; J2175; J2270; J3010; J3490; J7060; J7512; J7626; Q0092; Q9967

== ENCOUNTER 2021-11-18 10:19 | Emergency (ER) | payer OTHER ==
[~2021-11-18] VITALS: Ht 175.3 cm; Wt 92.3 kg
[~2021-11-18 10:19] MED LIST changes: -ACET-8386 PO; -AZIT250T4 PO; -HYDR-5080 PO; -NAPR-54 PO; -PRED20TA5 PO
[2021-11-18 10:28] VITALS: BP 135/79
--- NOTE | 2021-11-18 10:32 | NUR ---
26 Y/O MALE BIB SELF C/O SOB, COUGH WITH YELLOW SPUTUMX 1DAY, AND BACK PAIN 7/10 MADE WORSE BY DEEP INHALATION. STATED THAT HE WAS ADMITTED IN [place] IN AUGUST FOR PNEUMOTHORAX, NOTED INCISION FOR CHEST TUBE IN THE LEFT AXILLARY AREA. WHEEZING NOTED ON THE UPPER LOBES. PT STATED THAT HE HAS BEEN TAKING HIS ALBUTEROL. DENIED ANY FEVER, CHILLS. PT PLACED ON MONITOR, CHANGED IN A GOWN, BED LOCKED NKA PMH: ASTHMA
--- NOTE | 2021-11-18 10:55 | NUR ---
DR POWELL AT BEDSIDE FOR FURTHER EVAL
[2021-11-18] MEDS ORDERED: ALBUTEROL SULFATE/IPRATROPIU 3 ML SOL IH ONE (11:00)
[2021-11-18] MEDS ORDERED: predniSONE 20 MG TAB PO ONE (11:00)
--- NOTE | 2021-11-18 11:05 | NUR ---
RT AT BEDSIDE FOR BREATHING TREATMENT
--- NOTE | 2021-11-18 11:08 | NUR ---
RAD AT BEDSIDE
[2021-11-18] MEDS ORDERED: PRED20TA5 PO (11:40)
[2021-11-18] MEDS ORDERED: ALBU0.0912 IH (11:40)
[2021-11-18] MEDS ORDERED: IBUPROFEN 600 MG TAB PO ONE (12:05)
[2021-11-18 12:16] VITALS: BP 133/55
--- NOTE | 2021-11-18 12:23 | NUR ---
Patient discharged with v/s stable. Written and verbal after care instructions given and explained. Patient alert, oriented and verbalized understanding of instructions. Ambulatory with steady gait. All questions addressed prior to discharge. ID band removed. Patient advised to follow up with PMD. Rx of PREDNISONE, ALBUTEROL, MOTRIN given. Patient educated on indication of medication including possible reaction and side effects. Opportunity to ask questions provided and answered.
== END 2021-11-18 12:23 | disposition home or self-care (01) ==
LOC: MED 10:19
DX: J45.901 Unspecified asthma with (acute) exacerbation (principal); Z79.899 Other long term (current) drug therapy
CPT/HCPCS: 71045; 94640; 99283; J7512

== ENCOUNTER 2022-05-25 03:12 | Inpatient (IN) | payer OTHER ==
[~2022-05-25] VITALS: Ht 177.8 cm; Wt 90.7 kg
[2022-05-25] MEDS: NACL 0.9% 1,000 ML IV SCH ×3 (00:15→09:22)
[~2022-05-25 03:12] MED LIST changes: +ALBU0.0912 IH; +PRED20TA5 PO
--- NOTE | 2022-05-25 03:15 | NUR ---
TO BED AMBULATORY
[2022-05-25] MEDS ORDERED: ONDANSETRON 4 MG/2 ML VIAL IVP ONE (03:30)
[2022-05-25] MEDS ORDERED: KETOROLAC 30 MG/ML VIAL IVP ONE (03:30)
[2022-05-25] MEDS ORDERED: KETOROLAC 30 MG/ML VIAL ONE (03:32)
[2022-05-25] MEDS ORDERED: ONDANSETRON 4 MG/2 ML VIAL ONE (03:33)
[2022-05-25] MEDS ORDERED: NACL 0.9% 1,000 ML IV ONE (03:35)
[2022-05-25] MEDS ORDERED: MORPHINE SULFATE 4 MG/ML SYR IVP ONE (03:40)
--- NOTE | 2022-05-25 03:41 | NUR ---
PATIENT STATED THAT HE UNABLE TO PROVIDE URINE AT THIS TIME. URINAL AT BEDSIDE
--- NOTE | 2022-05-25 03:47 | NUR ---
URINE AND LABS COLLECTED AND TAKEN TO LAB.
[2022-05-25 03:53] LABS: BASOPHILS # (AUTO) 0.1 K/uL (0.00-0.22); EOSINOPHILS % (AUTO) 0.5 % (0.0-4.0); HEMATOCRIT 47.2 % (36-52); HEMOGLOBIN 16.4 g/dL (12.0-18.0); LYMPHOCYTES # (AUTO) 3.9 K/uL (2.0-11.5); LYMPHOCYTES % (AUTO) 42.8 % (20.5-51.1); MEAN CORPUSCULAR HEMOGLOBIN 32 pg (27-31); MEAN CORPUSCULAR HGB CONC 35 g/dL (33-37); MEAN CORPUSCULAR VOLUME 91.7 fL (80-94); MONOCYTES # (AUTO) 0.4 K/uL (0.8-1.0); MONOCYTES % (AUTO) 4.1 % (1.7-9.3); NEUTROPHILS # (AUTO) 4.8 K/uL (1.8-7.7); NEUTROPHILS % (AUTO) 51.6 % (42.2-75.2); PLATELET COUNT (AUTO) 280 K/uL (140-450); RED BLOOD CELL COUNT(AUTO) 5.15 MIL/uL (4.20-6.10); RED CELL DISTRIBUTION WIDTH 13.4 % (11.6-13.7); WHITE BLOOD COUNT (AUTO) 9.2 K/uL (4.8-10.8)
[2022-05-25 03:53] LABS: APPEARANCE,URINE HAZY (CLEAR); BILIRUBIN,URINE 1+ (NEGATIVE); BLOOD, URINE NEGATIVE (NEGATIVE); COLOR,URINE YELLOW (YELLOW); LEUKOCYTE ESTERASE ,URINE NEGATIVE (NEGATIVE); NITRITE, URINE NEGATIVE (NEGATIVE); PH,URINE 5.5 (5.0-9.0); UGLUCOSE NEGATIVE (NEGATIVE)
--- NOTE | 2022-05-25 03:53 | NUR ---
PT MEDICATED. PT TAKEN TO CT.
--- NOTE | 2022-05-25 03:59 | NUR ---
PT BACK FROM CT
[2022-05-25 04:11] LABS: RBC,URINE 0-5 /HPF (0-5); WBC,URINE 0-5 /HPF (0-5)
[2022-05-25 04:13] LABS: ALBUMIN 4.7 g/dL (3.4-5.0); CREATININE 1.2 mg/dL (0.6-1.3); POTASSIUM 3.2 mmol/L (3.5-5.1); TOTAL BILIRUBIN 0.3 mg/dL (0.0-1.0)
[2022-05-25 04:39] LABS: ANION GAP 9.3 (8-16); CARBON DIOXIDE 25.9 mmol/L (21-32)
[2022-05-25] MEDS ORDERED: ACETAMINOPHEN 325 MG TAB PO PRN (06:20)
[2022-05-25] MEDS ORDERED: MAG SULF 2000 MG/WATER PREMIX 50 ML IV PRN (06:20)
[2022-05-25] MEDS ORDERED: HYDROcodone/APAP 5/325 MG 1 TAB TAB PO PRN (06:20)
[2022-05-25] MEDS ORDERED: KCL 20 MEQ/WATER INJ PREMIX 200 ML IV PRN (06:20)
[2022-05-25] MEDS ORDERED: ONDANSETRON 4 MG/2 ML VIAL IVP PRN (06:20)
[2022-05-25] MEDS ORDERED: POTASSIUM CHLORIDE 10 MEQ TABER PO PRN (06:20)
[2022-05-25] MEDS ORDERED: MAGNESIUM OXIDE 400 MG TAB PO PRN (06:20)
--- NOTE | 2022-05-25 06:23 | NUR ---
SWAB COLLECTED AND WALKED TO LAB
[2022-05-25] MEDS: MORPHINE SULFATE 4 MG/ML SYR IVP PRN ×2 (07:00→19:46)
[2022-05-25] MEDS ORDERED: ONDANSETRON 4 MG ODT SL PRN (07:20)
[2022-05-25] MEDS ORDERED: PROCHLORPERAZINE 10 MG/2 ML VIAL IVP PRN (09:30)
[2022-05-25] MEDS: ONDANSETRON 4 MG/2 ML VIAL IVP PRN ×2 (10:02→22:49)
--- NOTE | 2022-05-25 19:20 | NUR ---
handoff received from SHEA Montalvo. assumed care at this time. 120cc/hr IVF still infusing.
--- NOTE | 2022-05-25 19:42 | NUR ---
pt has c/o 7/10 abdominal pain.
--- NOTE | 2022-05-25 20:00 | NUR ---
PT EAT ABOUT 50% OF MEAL
--- NOTE | 2022-05-25 22:50 | NUR ---
PT REPORTS FEELINGS OF NAUSEA. PT MEDICATED WITH PRN ZOFRAN 4MG IVP.
--- NOTE | 2022-05-26 00:15 | NUR ---
PT MOVED TO BED #9
--- NOTE | 2022-05-26 00:32 | NUR ---
PT REPORTS 5/10 ABDOMINAL PAIN. PT MEDICATED WITH PRN NORCO
--- NOTE | 2022-05-26 04:38 | NUR ---
Patient appears to be resting comfortably in bed. Respirations even and unlabored.
--- NOTE | 2022-05-26 07:14 | NUR ---
REPORT GIVEN TO SHEA DOCKERY. TRANSFER OF CARE AT THIS TIME.
[2022-05-26 07:35] LABS: BASOPHILS % (AUTO) 0.2 % (0.0-2.0); EOSINOPHILS # (AUTO) 0.5 K/uL (0-0.4); EOSINOPHILS % (AUTO) 8.2 % (0.0-4.0); HEMATOCRIT 41.9 % (36-52); HEMOGLOBIN 14.4 g/dL (12.0-18.0); LYMPHOCYTES # (AUTO) 2.6 K/uL (2.0-11.5); LYMPHOCYTES % (AUTO) 41.8 % (20.5-51.1); MEAN CORPUSCULAR HEMOGLOBIN 32 pg (27-31); MEAN CORPUSCULAR HGB CONC 34 g/dL (33-37); MEAN CORPUSCULAR VOLUME 92.8 fL (80-94); MONOCYTES # (AUTO) 0.7 K/uL (0.8-1.0); MONOCYTES % (AUTO) 10.6 % (1.7-9.3); NEUTROPHILS # (AUTO) 2.4 K/uL (1.8-7.7); NEUTROPHILS % (AUTO) 39.2 % (42.2-75.2); PLATELET COUNT (AUTO) 223 K/uL (140-450); RED BLOOD CELL COUNT(AUTO) 4.52 MIL/uL (4.20-6.10); RED CELL DISTRIBUTION WIDTH 13.3 % (11.6-13.7); WHITE BLOOD COUNT (AUTO) 6.2 K/uL (4.8-10.8)
[2022-05-26 07:49] LABS: ALBUMIN 3.5 g/dL (3.4-5.0); ANION GAP 11.8 (8-16); CARBON DIOXIDE 28.1 mmol/L (21-32); POTASSIUM 3.9 mmol/L (3.5-5.1); TOTAL BILIRUBIN 0.5 mg/dL (0.0-1.0)
--- NOTE | 2022-05-26 08:04 | NUR ---
Patient will be admitted to care of 112A. Admited to Med/Surg. Will go to room. Belongings list completed. Report to
[2022-05-26] MEDS: NACL 0.9% 1,000 ML IV SCH ×2 (08:15→15:18)
--- NOTE | 2022-05-26 08:21 | NUR ---
RECEIVE PATIENT FROM ER NURSE THAT PATIENT AMBULATORY, FROM HOME, REPORT ABDOMINAL PAIN AFTER ATE OYSTER, DIAGNOSIS WITH GASTROENTERITIS (ER NURSE REPORT DIAGNOSIS W/ FOOD POISON), HX OF ASTHMA, BILATERAL SPONTANEOUS PNEUMOTHORAX; VITAL WNL (T-P-R: 98.6-60-18, BP: 118/67, O2 SAT: 96% IN RA). PATIENT ALERT X4, ON REGULAR DIET. PIV AT RAC INFUSING NS @120ML/HR; ON ROOM AIR WITH NO ACUTE SKIN ISSUE. WILL CONTINUE TO MONITOR
[2022-05-26 08:35] VITALS: BP 118/67
--- NOTE | 2022-05-26 09:02 | NUR ---
PATIENT HAS BEEN SCREENED AND CATEGORIZED LOW NUTRITION RISK. PATIENT WILL BE SEEN WITHIN 7 DAYS OF ADMISSION. 05/25/22-06/01/[address]
[2022-05-26] MEDS ORDERED: HYDROcodone/APAP 10/325 MG 1 TAB TAB PO PRN (10:10)
[2022-05-26 16:00] VITALS: BP 109/60
[2022-05-26] MEDS ORDERED: ACET-8905 PO (17:36)
[2022-05-26] MEDS ORDERED: ONDA-188 SL (17:36)
[2022-05-26] MEDS ORDERED: ACET-10509 PO (17:45)
[2022-05-26 17:47] VITALS: BP 109/60
--- NOTE | 2022-05-26 18:16 | NUR ---
DISCHARGE PATIENT PER PATIENT REQUEST IN STABLE CONDITION. DISCHARGE CONSENT SIGNED, DISCHARGE INSTRUCTION GIVEN, IV ACCESS & WRIST BAND REMOVE PRIOR TO PATIENT WALKING OUT THE FACILITY. AT THIS POINT OF TIME PATIENT NO ACUTE DISTRESS NOTED, PAIN MEDICATION GIVEN BEFORE DISCHARGE.
== END 2022-05-26 18:15 | disposition home or self-care (01) | DRG 249 ==
LOC: MED 03:12 → MMU 06:19 → MTU 05-26 06:02
PROVIDERS: ADMIT Internal Medicine; ATTEND Internal Medicine
DX: K52.9 Noninfective gastroenteritis and colitis, unspecified (principal); E87.1 Hypo-osmolality and hyponatremia; Z20.822 Contact with and (suspected) exposure to COVID-19; A05.9 Bacterial foodborne intoxication, unspecified; J45.909 Unspecified asthma, uncomplicated; E87.6 Hypokalemia; R74.01 Elevation of levels of liver transaminase levels
CPT/HCPCS: 36415; 80053; 81001; 83735; 85025; 87081; 96361; 96374; 96375; 99285; J1885; J2270; J2405; J7030

== ENCOUNTER 2022-06-12 17:16 | Emergency (ER) | payer OTHER ==
[~2022-06-12] VITALS: Ht 175.3 cm; Wt 99.8 kg
[~2022-06-12 17:16] MED LIST changes: +ACET-10509 PO; +ONDA-188 SL; -PRED20TA5 PO
[2022-06-12 17:24] VITALS: BP 131/87
[2022-06-12] MEDS ORDERED: COROTSOL RIGHT EAR (17:52)
[2022-06-12] MEDS ORDERED: IBUP-2213 PO (17:52)
[2022-06-12] MEDS: IBUPROFEN 600 MG TAB PO ONE (18:16)
--- NOTE | 2022-06-12 18:17 | NUR ---
26/M PRESENTS TO ED WITH C/O RIGHT EAR PAIN, STATES HE WAS USING AN EAR WAX J[employer]PER[employer] WITH A BULB SYRINGE AND HAD SUDDEN SHARP PAIN. STATES SOME BLOOD CAME FROM EAR S/P CLEANING IT. NO OBVIOUS SIGNS OF BLEEDING AT THIS TIME, PATIENT C/O 10/10 SHARP PAIN.
--- NOTE | 2022-06-12 18:22 | NUR ---
Patient discharged with v/s stable. Written and verbal after care instructions ABOUT [employer] BUILD[employer] AND [employer]ITIS EXTERNA given and explained. Patient alert, oriented and verbalized understanding of instructions. Ambulatory with steady gait. All questions addressed prior to discharge. ID band removed. Patient advised to follow up with PMD. Rx of CORTISPORIN OTIC SOLUTION AND IBUPROFEN given. Patient educated on indication of medication including possible reaction and side effects. Opportunity to ask questions provided and answered.
== END 2022-06-12 18:22 | disposition home or self-care (01) ==
LOC: MED 17:16
DX: H61.21 Impacted cerumen, right ear (principal); H60.91 Unspecified otitis externa, right ear; J45.909 Unspecified asthma, uncomplicated; Z79.899 Other long term (current) drug therapy; Z79.1 Long term (current) use of non-steroidal anti-inflammatories (NSAID)
CPT/HCPCS: 99283

== ENCOUNTER 2023-01-09 07:52 | Emergency (ER) | payer OTHER ==
[~2023-01-09] VITALS: Ht 175.3 cm; Wt 96.2 kg
[~2023-01-09 07:52] MED LIST changes: +COROTSOL RIGHT EAR; +IBUP-2213 PO
[2023-01-09 07:58] VITALS: BP 136/83; PULSE 99; RESP 28; TEMP 97.4; O2SAT 100
[2023-01-09] MEDS ORDERED: KETOROLAC 30 MG/ML VIAL IM ONE (08:30)
[2023-01-09] MEDS ORDERED: PROCHLORPERAZINE 10 MG/2 ML VIAL IM ONE (08:30)
== END 2023-01-09 08:55 | disposition home or self-care (01) ==
LOC: MED 07:52
DX: R51.9 Headache, unspecified (principal); Z20.822 Contact with and (suspected) exposure to COVID-19; J45.909 Unspecified asthma, uncomplicated; Z79.899 Other long term (current) drug therapy; Z79.1 Long term (current) use of non-steroidal anti-inflammatories (NSAID)
CPT/HCPCS: 87426; 96372; 99284; J0780; J1885; Q0163

== ENCOUNTER 2023-07-12 08:52 | Emergency (ER) | payer OTHER ==
[~2023-07-12] VITALS: Ht 165.1 cm; Wt 98.4 kg
[2023-07-12 08:59] VITALS: BP 144/84; PULSE 118; RESP 28; TEMP 98; O2SAT 95
[2023-07-12] MEDS ORDERED: methylPREDNISolone SS 125 MG/2 ML VIAL ONE (09:05)
[2023-07-12] MEDS ORDERED: MAG SULF 2000 MG/WATER PREMIX 50 ML IV ONE (09:06)
[2023-07-12] MEDS ORDERED: IPRATROPIUM 0.02% 0.5 MG/2.5 ML NEBU INH ONE (09:07)
[2023-07-12] MEDS ORDERED: ALBUTEROL 0.083% 2.5 MG/3 ML NEBU INH ONE ×2 (09:07)
[2023-07-12] MEDS: IPRATROPIUM 0.02% 0.5 MG/2.5 ML NEBU INH ONE (09:08)
[2023-07-12] MEDS: ALBUTEROL 0.083% 2.5 MG/3 ML NEBU INH ONE (09:09)
[2023-07-12 09:10] VITALS: PULSE 109; RESP 10; O2SAT 92; O2SAT 93
[2023-07-12 09:11] VITALS: O2SAT 93
[2023-07-12] MEDS: ONDANSETRON 4 MG/2 ML VIAL IVP ONE (09:15)
[2023-07-12] MEDS: NACL 0.9% 1,000 ML IV ONE (09:15)
[2023-07-12] MEDS: methylPREDNISolone SS 125 MG/2 ML VIAL IVP ONE (09:16)
[2023-07-12] MEDS: MAG SULF 2000 MG/WATER PREMIX 50 ML IV ONE (09:16)
[2023-07-12 09:58] LABS: FLU A ANTIGEN negative (NEGATIVE); FLU B ANTIGEN NEGATIVE (NEGATIVE)
[2023-07-12] MEDS ORDERED: PRED20TA5 PO (10:11)
[2023-07-12] MEDS ORDERED: PRON INH (10:11)
[2023-07-12] MEDS: LORazepam 1 MG TAB PO ONE (10:34)
[2023-07-12 10:37] VITALS: BP 133/76; PULSE 99; RESP 20; TEMP 98.1; O2SAT 94
== END 2023-07-12 10:37 | disposition home or self-care (01) ==
LOC: MED 08:52
DX: J45.901 Unspecified asthma with (acute) exacerbation (principal); Z20.822 Contact with and (suspected) exposure to COVID-19; Z79.899 Other long term (current) drug therapy
CPT/HCPCS: 87426; 87804; 94640; 96365; 96366; 96375; 99291; J2405; J2930; J3475; J7613; J7644; Q0163; 94644

== ENCOUNTER 2023-09-02 | Emergency (ER) | payer OTHER ==
[~2023-09-02] VITALS: Ht 172.7 cm; Wt 95.9 kg
[~2023-09-02] MED LIST changes: +PRED20TA5 PO; +PRON INH
[2023-09-02 00:10] VITALS: BP 126/84; PULSE 101; RESP 24; TEMP 98; O2SAT 93
[2023-09-02] MEDS: ALBUTEROL 0.083% 2.5 MG/3 ML NEBU INH ONE (00:28)
[2023-09-02] MEDS ORDERED: WATER STERILE 10 ML MC ONE (01:19)
[2023-09-02] MEDS ORDERED: methylPREDNISolone SS 125 MG/2 ML VIAL ONE (01:19)
[2023-09-02] MEDS: methylPREDNISolone SS 125 MG in WATER STERILE 2 ML IV SCH (01:24)
[2023-09-02] MEDS ORDERED: AZIT250T4 PO (02:23)
[2023-09-02] MEDS ORDERED: PRED20TA5 PO (02:24)
[2023-09-02 02:34] VITALS: BP 144/78; PULSE 78; RESP 16; O2SAT 94
== END 2023-09-02 02:34 | disposition home or self-care (01) ==
LOC: MED
DX: J45.901 Unspecified asthma with (acute) exacerbation (principal); Z79.1 Long term (current) use of non-steroidal anti-inflammatories (NSAID); Z79.899 Other long term (current) drug therapy
CPT/HCPCS: 71045; 96374; 99283; J2930; J7613; 94640

== ENCOUNTER 2023-09-28 20:04 | Emergency (ER) | payer OTHER ==
[~2023-09-28] VITALS: Ht 175.3 cm; Wt 89.8 kg
[~2023-09-28 20:04] MED LIST changes: +AZIT250T4 PO
[2023-09-28 20:10] VITALS: BP 136/67; PULSE 88; RESP 16; TEMP 98.1; O2SAT 98
[2023-09-28] MEDS: KETOROLAC 60 MG/2 ML VIAL IM ONE (20:30)
[2023-09-28] MEDS ORDERED: IBUP-2213 PO (20:31)
[2023-09-28 20:42] VITALS: BP 124/67; PULSE 88; RESP 16; TEMP 98.1; O2SAT 98
== END 2023-09-28 20:42 | disposition home or self-care (01) ==
LOC: MED 20:04
DX: R07.89 Other chest pain (principal); J45.909 Unspecified asthma, uncomplicated; Z79.899 Other long term (current) drug therapy
CPT/HCPCS: 93005; 96372; 99283; J1885

== ENCOUNTER 2023-10-21 09:09 | Emergency (ER) | payer OTHER ==
[~2023-10-21] VITALS: Ht 177.8 cm; Wt 90.7 kg
[2023-10-21 09:27] VITALS: BP 130/88; PULSE 78; RESP 18; TEMP 97.6; O2SAT 100
[2023-10-21 10:07] LABS: BASOPHILS % (AUTO) 0.2 % (0.0-2.0); EOSINOPHILS # (AUTO) 0.3 K/uL (0-0.4); HEMATOCRIT 45.3 % (36-52); HEMOGLOBIN 15.8 g/dL (12.0-18.0); LYMPHOCYTES # (AUTO) 0.7 K/uL (2.0-11.5); LYMPHOCYTES % (AUTO) 9.1 % (20.5-51.1); MEAN CORPUSCULAR HEMOGLOBIN 33 pg (27-31); MEAN CORPUSCULAR HGB CONC 35 g/dL (33-37); MEAN CORPUSCULAR VOLUME 92.9 fL (80-94); MONOCYTES # (AUTO) 0.3 K/uL (0.8-1.0); MONOCYTES % (AUTO) 4.2 % (1.7-9.3); NEUTROPHILS # (AUTO) 6.5 K/uL (1.8-7.7); NEUTROPHILS % (AUTO) 82.5 % (42.2-75.2); PLATELET COUNT (AUTO) 215 K/uL (140-450); RED BLOOD CELL COUNT(AUTO) 4.87 MIL/uL (4.20-6.10); RED CELL DISTRIBUTION WIDTH 13.2 % (11.6-13.7); WHITE BLOOD COUNT (AUTO) 7.9 K/uL (4.8-10.8)
[2023-10-21 10:25] LABS: ANION GAP 16.1 (8-16); CARBON DIOXIDE 21.6 mmol/L (21-32); CREATININE 0.8 mg/dL (0.6-1.3); POTASSIUM 3.7 mmol/L (3.5-5.1)
[2023-10-21 10:31] LABS: ALBUMIN 4.2 g/dL (3.4-5.0); BILIRUBIN,DIRECT 0.2 mg/dL (0.0-0.3); TOTAL BILIRUBIN 1.2 mg/dL (0.0-1.0)
[2023-10-21] MEDS: ONDANSETRON 4 MG/2 ML VIAL IVP ONE (11:09)
[2023-10-21] MEDS: MORPHINE SULFATE 4 MG/ML SYR IVP ONE (11:09)
[2023-10-21 12:04] LABS: APPEARANCE,URINE CLEAR (CLEAR); BILIRUBIN,URINE 1+ (NEGATIVE); BLOOD, URINE NEGATIVE (NEGATIVE); COLOR,URINE YELLOW (YELLOW); LEUKOCYTE ESTERASE ,URINE NEGATIVE (NEGATIVE); NITRITE, URINE NEGATIVE (NEGATIVE); PROTEIN,URINE NEGATIVE (NEGATIVE); UGLUCOSE NEGATIVE (NEGATIVE); UROBILINOGEN,URINE 0.2 EU/dL (0.2 - 1)
[2023-10-21 12:07] LABS: ICTOTEST POSITIVE (NEGATIVE)
[2023-10-21 12:39] VITALS: BP 133/79; PULSE 82; RESP 21; TEMP 98.6; O2SAT 96
[2023-10-21] MEDS ORDERED: ONDA4ODT2 PO (13:12)
== END 2023-10-21 13:32 | disposition home or self-care (01) ==
LOC: MED 09:09
DX: K52.9 Noninfective gastroenteritis and colitis, unspecified (principal); J45.909 Unspecified asthma, uncomplicated; Z79.1 Long term (current) use of non-steroidal anti-inflammatories (NSAID); Z79.2 Long term (current) use of antibiotics; Z79.899 Other long term (current) drug therapy
CPT/HCPCS: 36415; 74177; 80048; 80076; 81003; 83690; 85025; 86886; 86900; 86901; 96374; 96375; 99285; J2270; J2405; Q9967

== ENCOUNTER 2023-12-25 20:23 | Emergency (ER) | payer OTHER ==
[~2023-12-25] VITALS: Ht 177.8 cm; Wt 85.7 kg
[~2023-12-25 20:23] MED LIST changes: +ONDA-189 PO
[2023-12-25 20:31] VITALS: BP 144/82; PULSE 104; RESP 18; TEMP 98; O2SAT 99
[2023-12-25] MEDS: METOCLOPRAMIDE 10 MG/2 ML INJ VIAL IM ONE (21:20)
[2023-12-25] MEDS: ACETAMINOPHEN EXTRA STRENGTH 500 MG TAB PO ONE (21:20)
[2023-12-25 22:32] VITALS: BP 144/82; PULSE 104; RESP 18; TEMP 98; O2SAT 99
== END 2023-12-25 22:32 | disposition home or self-care (01) ==
LOC: MED 20:23
DX: S06.0X0A Concussion without loss of consciousness, initial encounter (principal); R51.9 Headache, unspecified; J45.909 Unspecified asthma, uncomplicated; Z79.2 Long term (current) use of antibiotics; Z79.899 Other long term (current) drug therapy; W22.8XXA Striking against or struck by other objects, initial encounter; Y93.89 Activity, other specified; Y92.89 Other specified places as the place of occurrence of the external cause; Y99.8 Other external cause status
CPT/HCPCS: 70450; 96372; 99285; J2765

== ENCOUNTER 2024-01-26 06:37 | Emergency (ER) | payer OTHER ==
[~2024-01-26] VITALS: Ht 175.3 cm; Wt 81.6 kg
[~2024-01-26 06:37] MED LIST changes: -ACET-10509 PO; +ACET500T99 PO
[2024-01-26 06:40] VITALS: BP 119/84; PULSE 74; RESP 22; TEMP 97.7; O2SAT 100
[2024-01-26] MEDS ORDERED: ALBUTEROL SULFATE/IPRATROPIU 3 ML SOL IH ONE (06:55)
[2024-01-26] MEDS ORDERED: ALBUTEROL 0.083% 2.5 MG/3 ML NEBU INH ONE (06:56)
[2024-01-26] MEDS: ALBUTEROL 0.083% 2.5 MG/3 ML NEBU INH ONE (06:57)
[2024-01-26] MEDS: ALBUTEROL SULFATE/IPRATROPIU 3 ML SOL IH ONE (06:57)
[2024-01-26 06:58] VITALS: PULSE 77; RESP 11; O2SAT 95
[2024-01-26] MEDS ORDERED: PRED20TA5 PO (06:58)
[2024-01-26] MEDS: predniSONE 20 MG TAB PO ONE (07:00)
[2024-01-26 07:46] VITALS: BP 126/86; PULSE 67; RESP 20; TEMP 97.7; O2SAT 95
== END 2024-01-26 07:46 | disposition home or self-care (01) ==
LOC: MED 06:37
DX: J45.901 Unspecified asthma with (acute) exacerbation (principal); R03.0 Elevated blood-pressure reading, without diagnosis of hypertension; F17.200 Nicotine dependence, unspecified, uncomplicated; Z79.1 Long term (current) use of non-steroidal anti-inflammatories (NSAID); Z79.2 Long term (current) use of antibiotics; Z79.899 Other long term (current) drug therapy
CPT/HCPCS: 94640; 99283; J7512; J7613

== ENCOUNTER 2024-02-29 23:17 | Emergency (ER) | payer OTHER ==
[~2024-02-29] VITALS: Ht 177.8 cm; Wt 80.7 kg
[2024-02-29 23:28] VITALS: BP 120/77; PULSE 80; RESP 20; TEMP 98.2; O2SAT 96
[2024-03-01 01:06] LABS: BASOPHILS % (AUTO) 0.3 % (0.0-2.0); EOSINOPHILS # (AUTO) 0.8 K/uL (0-0.4); EOSINOPHILS % (AUTO) 11.7 % (0.0-4.0); HEMATOCRIT 47.8 % (36-52); HEMOGLOBIN 16.2 g/dL (12.0-18.0); LYMPHOCYTES # (AUTO) 1.3 K/uL (2.0-11.5); MEAN CORPUSCULAR HEMOGLOBIN 32 pg (27-31); MEAN CORPUSCULAR HGB CONC 34 g/dL (33-37); MEAN CORPUSCULAR VOLUME 95.1 fL (80-94); MONOCYTES # (AUTO) 0.5 K/uL (0.8-1.0); MONOCYTES % (AUTO) 7.3 % (1.7-9.3); NEUTROPHILS % (AUTO) 60.7 % (42.2-75.2); PLATELET COUNT (AUTO) 230 K/uL (140-450); RED BLOOD CELL COUNT(AUTO) 5.03 MIL/uL (4.20-6.10); RED CELL DISTRIBUTION WIDTH 13.6 % (11.6-13.7); WHITE BLOOD COUNT (AUTO) 6.6 K/uL (4.8-10.8)
[2024-03-01] MEDS: ONDANSETRON 4 MG/2 ML VIAL IVP ONE (01:10)
[2024-03-01] MEDS: MORPHINE SULFATE 4 MG/ML SYR IVP ONE (01:12)
[2024-03-01] MEDS: NACL 0.9% 1,000 ML IV ONE (01:13)
[2024-03-01 01:27] LABS: CALCIUM 9.4 mg/dL (8.5-10.1); CARBON DIOXIDE 27.9 mmol/L (21-32); CREATININE 0.8 mg/dL (0.6-1.3); POTASSIUM 3.9 mmol/L (3.5-5.1)
[2024-03-01 01:34] LABS: ALBUMIN 4.2 g/dL (3.4-5.0); TOTAL BILIRUBIN 0.7 mg/dL (0.0-1.0); TOTAL PROTEIN, SERUM 7.1 g/dL (6.4-8.2)
[2024-03-01 03:19] LABS: AMPHETAMINE, URINE POSITIVE ng/ml (NEG <=1000); BARBITURATE, URINE NEGATIVE ng/ml (NEG <=200); BENZODIAZEPINE, URINE NEGATIVE ng/mL (NEG <=200); CANNABINOID, URINE POSITIVE ng/mL (NEG <=50); COCAINE, URINE POSITIVE ng/mL (NEG <=300)
[2024-03-01 03:20] LABS: OPIATE, URINE POSITIVE ng/mL (NEG <=2000); PHENCYCLIDINE SCREEN,URINE NEGATIVE ng/mL (NEG <=25)
[2024-03-01 03:35] VITALS: BP 111/62; PULSE 82; RESP 14; TEMP 98.2; O2SAT 99
== END 2024-03-01 03:35 | disposition home or self-care (01) ==
LOC: MED 23:17
DX: R10.84 Generalized abdominal pain (principal); R11.2 Nausea with vomiting, unspecified; R19.7 Diarrhea, unspecified; F19.90 Other psychoactive substance use, unspecified, uncomplicated; J45.909 Unspecified asthma, uncomplicated; Z98.890 Other specified postprocedural states; Z79.899 Other long term (current) drug therapy
CPT/HCPCS: 36415; 74177; 80053; 80305; 83690; 85025; 96361; 96374; 96375; 99285; J2270; J2405; J7030; Q9967